=== PATIENT | female | born 1940 | race Caucasian/White ===

== ENCOUNTER 2017-03-06 08:51 | Inpatient (IN) | payer MEDICARE, MEDICAID ==
[~2017-03-06] VITALS: Ht 160 cm; Wt 73.0 kg
[2017-03-06] VITALS (21 sets, daily range): BP systolic 79–124; BP diastolic 42–99
[2017-03-06] MEDS ORDERED: Diltiazem 25mg/5ml IV ONE ×2 (09:15→12:00)
[2017-03-06] MEDS ORDERED: Ipratropium 0.02% Inh Soln 2.5ml UD HHN ONE (09:15)
[2017-03-06] MEDS ORDERED: Albuterol ud Inhalation HHN ONE (09:15)
[2017-03-06 09:22] LABS: BASOPHILS % (AUTO) 2.4 % (0.0-2.0); EOSINOPHILS % (AUTO) 3.4 % (0.0-3.0); LYMPHOCYTES % (AUTO) 50.6 % (20.0-45.0); MEAN CORPUSCULAR HEMOGLOBIN 29.5 PG (27.0-31.0); MEAN CORPUSCULAR HGB CONC 31.1 G/DL (32.0-36.0); MEAN CORPUSCULAR VOLUME 95 FL (80-99); MEAN PLATELET VOLUME 7.3 FL (6.5-10.1); MONOCYTES % (AUTO) 7.7 % (1.0-10.0); NEUTROPHILS % (AUTO) 35.9 % (45.0-75.0); PLATELET COUNT 429 K/UL (150-450); RED BLOOD COUNT 4.65 M/UL (4.20-5.40); WHITE BLOOD COUNT 11.7 K/UL (4.8-10.8)
[2017-03-06 09:31] LABS: INR 1.9 (0.9-1.1); PROTHROMBIN TIME 19.8 SEC (9.30-11.50)
[2017-03-06 09:39] LABS: TROPONIN I < 0.30 ng/mL (<=0.30)
[2017-03-06 09:42] LABS: ALANINE AMINOTRANSFERASE 22 U/L (3-33); ALBUMIN/GLOBULIN RATIO 1.4 (1.0-2.7); ANION GAP 13 (5-15); ASPARTATE AMINO TRANSFERASE 20 U/L (5-40); CALCIUM 9.2 mg/dL (8.6-10.2); CARBON DIOXIDE 28 mEQ/L (20-30); CHLORIDE 99 mEQ/L (98-107); CREATININE 0.8 mg/dL (0.5-0.9); HEMOLYSIS 22; LIPASE 44 U/L (< 60); POTASSIUM 4.3 mEQ/L (3.4-4.9); SODIUM 140 mEQ/L (135-145); TOTAL PROTEIN 6.4 g/dL (6.6-8.7)
[2017-03-06] MEDS ORDERED: DIGOXIN0.125 MG/2 ORAL (09:44)
[2017-03-06] MEDS ORDERED: BACLOFEN10 MG ORAL (09:44)
[2017-03-06] MEDS ORDERED: IPRATROPIU0.2 MG/1 M HHN (09:44)
[2017-03-06] MEDS ORDERED: ADVAIR 250-501 EACH INH (09:44)
[2017-03-06] MEDS ORDERED: ATORVASTATIN CA10 MG ORAL (09:44)
[2017-03-06] MEDS ORDERED: FUROSEMIDE40 MG/5 ML ORAL (09:44)
[2017-03-06] MEDS ORDERED: SORE THROAT LO1 EAC3 MM (09:44)
[2017-03-06] MEDS ORDERED: DILTIAZEM HCL120 MG PO (09:44)
[2017-03-06] MEDS ORDERED: COUMADIN5 MG ORAL (09:44)
[2017-03-06] MEDS ORDERED: VENTOLIN HFA18 GM INH (09:44)
[2017-03-06] MEDS ORDERED: COLACE100 MG ORAL (09:44)
[2017-03-06] MEDS ORDERED: MORPHINE IR15 MG ORAL (09:45)
[2017-03-06] MEDS ORDERED: MILK OF MA400 MG/51 ORAL (09:45)
[2017-03-06] MEDS ORDERED: LEFLUNOMIDE20 MG PO (09:45)
[2017-03-06] MEDS ORDERED: SIMETHICONE80 MG ORAL (09:45)
[2017-03-06] MEDS ORDERED: GLUCAGON EMERGEN1 MG IJ (09:45)
[2017-03-06] MEDS ORDERED: JANUMET 50-5001 EACH ORAL (09:45)
[2017-03-06] MEDS ORDERED: PROTONIX20 MG ORAL (09:45)
[2017-03-06] MEDS ORDERED: NORCO 5-325 TA1 EAC1 ORAL (09:45)
[2017-03-06] MEDS ORDERED: SPIRIVA18 MCG INH (09:45)
[2017-03-06] MEDS ORDERED: GLUCOSE GEL38 GM PO (09:45)
[2017-03-06] MEDS ORDERED: SYMBICORT 80-10.2 G1 IH (09:45)
[2017-03-06] MEDS ORDERED: LORAZEPAM0.5 GM PO (09:45)
[2017-03-06] MEDS ORDERED: ALUMINUM H320 MG/5 M PO (09:45)
[2017-03-06] MEDS ORDERED: GABAPENTIN300 MG ORAL (09:45)
[2017-03-06] MEDS ORDERED: HUMALOG100 UNIT/4 SUBQ (09:45)
[2017-03-06] MEDS ORDERED: XOPENEX HFA15 GM IH (09:49)
[2017-03-06] MEDS ORDERED: ACETAMINOPHEN325 M1 ORAL (09:49)
[2017-03-06 09:53] LABS: CKMB 3.2 ng/mL (< 3.8)
[2017-03-06 10:27] LABS: ABG ALLEN TEST POSITIVE; ABG BASE EXCESS 1.5; ABG PCO2 50.2 mmHg (35.0-45.0)
--- NOTE | 2017-03-06 10:28 | Diagnostic Imaging Report ---
Indication: Dyspnea Comparison: None A single view chest radiograph was obtained. Findings: Interstitial densities, slightly enlarged hilar vessels and cardiac present. The bones are osteopenic. Impression: Suspect mild interstitial edema. correlate clinically
[2017-03-06] MEDS ORDERED: Enalaprilat 2.5mg/2ml Inj IV PRN ×2 (11:00→19:00)
[2017-03-06] MEDS ORDERED: Miralax 17gm pkt ORAL PRN ×2 (11:00→19:00)
[2017-03-06] MEDS ORDERED: DuoNeb 0.5-3(2.5)mg/3ml neb HHN PRN (11:00)
[2017-03-06] MEDS ORDERED: Nitroglycerin Subl 0.4mg tab (Bottle Of 25) SL PRN ×2 (11:00→18:45)
[2017-03-06] MEDS: Diltiazem 25mg/5ml IV PRN ×2 (11:54→14:58)
--- NOTE | 2017-03-06 14:16 | Emergency Room Report ---
History of Present Illness General Chief Complaint: Dyspnea/Respdistress Source: Patient, Medical Record Present Illness HPI Patient is a 76-year-old female who presented after increased difficulty breathing. Patient noted have acute onset of symptoms. Patient prior history of COPD. She was noted markedly hypertensive and was given multiple doses of nitroglycerin by EMS. Patient was noted to have increased shortness of breath. This is worsened with supine position. Patient did have crackles to both lungs. Patient had reportedly not been febrile. Allergies: Coded Allergies: No Known Allergies (Unverified , 03/06/17) Patient History Past Medical History: see triage record Now: No Reviewed Nursing Documentation: PMH: Agreed, PSxH: Agreed Nursing Documentation-PMH Hx Cardiac Problems: Yes Hx Hypertension: Yes Hx COPD: Yes - hypoxia,pneumonia Hx Diabetes: Yes Hx Cancer: No Hx Gastrointestinal Problems: Yes - ge reflux Hx Neurological Problems: Yes - rhumatoid arthrities Review of Systems All Other Systems: negative except mentioned in HPI Physical Exam Vital Signs Date Time Temp Pulse Resp B/P Pulse Ox O2 Delivery O2 Flow Rate FiO2 03/06/17 08:45 145 28 224/109 92 Non-Rebreather 15.0 03/06/17 08:54 97.5 100 Sp02 EP Interpretation: reviewed, normal General Appearance: normal inspection, well appearing, no apparent distress, alert, GCS 15, non-toxic Head: atraumatic ENT: normal ENT inspection, hearing grossly normal, normal voice Neck: normal inspection, full range of motion, supple, no bony tend Respiratory: normal inspection, lungs clear, normal breath sounds, no respiratory distress, no retraction, no wheezing Cardiovascular #1: regular rate, rhythm, no edema Gastrointestinal: normal inspection, normal bowel sounds, non tender, soft, no guarding, no hernia Genitourinary: no CVA tenderness Musculoskeletal: normal inspection, back normal, normal range of motion Neurologic: normal inspection, alert, oriented x3, responsive, line inspector III-XII nml as tested, speech normal Psychiatric: normal inspection, judgement/insight normal, mood/affect normal Skin: normal inspection, normal color, no rash Procedures Critical Care Time Critical Care Time Patient had a critical medical condition which untreated could potentially result in life or limb threatening injury. Total critical care time excluding procedures approximately 45 minutes. Medical Decision Making Diagnostic Impression: Primary Impression: Hypertensive emergency Additional Impressions: Congestive heart failure (CHF) COPD (chronic obstructive pulmonary disease) ER Course Patient presented for shortness of breath. Differential included but was not limited to anemia, pneumonia, pneumothorax, myocardial infarction, pericardial effusion, congestive heart failure, acidosis. Because of complexity of patient' s case laboratory testing and imaging studies were ordered. The patient was noted to have a prior history of COPD. She is noted to have atrial fibrillation with rapid ventricular response with a rate of breath or 50s. Patient was given IV Cardizem for rapid heart rate. The patient had improvement in heart rate. She started on BiPAP Dr. Ewing was contacted for inpatient management due to complexity of medical condition. EKG Diagnostic Results Rhythm: other - afib Rhythm Strip Diag. Results EP Interpretation: yes Rhythm: no PVC's, no ectopy Last Vital Signs Date Time Temp Pulse Resp B/P Pulse Ox O2 Delivery O2 Flow Rate FiO2 03/06/17 13:20 97.4 115 22 101/64 99 Bi-pap 30 03/06/17 08:45 15.0 Status: improved Disposition: ADMITTED INPATIENT Condition: Critical Referrals: NON PHYSICIAN (PCP) Josafat Silva Mar 06, 2017 14:16
[2017-03-06] MEDS ORDERED: Norco 5mg/325mg tab ORAL PRN (15:00)
[2017-03-06] MEDS ORDERED: Morphine IR 15mg tab ORAL PRN (15:00)
--- NOTE | 2017-03-06 15:14 | Cardiology Progress Note ---
Assessment/Plan Assessment/Plan copd chf acute systoilci dm obesity afib hs of dvt recently diuretic c consdire acie in futuer if bp allow dig level copd med limit beta agonits inhaler if possible anticoag cardizem drip for hr control vs po dilt [id number] Objective Last 24 Hour Vital Signs Date Time Temp Pulse Resp B/P Pulse Ox O2 Delivery O2 Flow Rate FiO2 03/06/17 13:20 97.4 115 22 101/64 99 Bi-pap 30 03/06/17 12:56 105 22 94/52 99 Bi-pap 30 03/06/17 12:35 104 24 97/51 99 Bi-pap 30 03/06/17 12:30 106 21 99 Facial 30 03/06/17 12:25 103 22 80/42 99 Bi-pap 30 03/06/17 12:20 104 24 100/60 99 Bi-pap 30 03/06/17 12:07 129 26 101/68 99 Bi-pap 30 03/06/17 12:06 130 111/70 03/06/17 11:48 120 22 97/53 99 Room Air 03/06/17 10:37 128 20 100 Facial 30 03/06/17 10:24 30 03/06/17 10:05 124 20 Bi-pap 100 03/06/17 09:37 124 22 97/48 100 Bi-pap 100 03/06/17 09:35 132 26 100 Bi-pap 100 03/06/17 09:34 123 29 101/48 100 Bi-pap 100 03/06/17 09:27 138 21 79/58 100 Bi-pap 100 03/06/17 09:25 147 26 100 Bi-pap 100 03/06/17 09:25 149 23 83/58 100 Bi-pap 100 03/06/17 09:20 146 124/59 03/06/17 09:03 167 48 100 Facial 100 03/06/17 09:02 167 48 Bi-pap 100 03/06/17 08:55 154 30 Bi-pap 100 03/06/17 08:54 97.5 164 45 99/52 100 Bi-pap 100 03/06/17 08:45 145 28 224/109 92 Non-Rebreather 15.0 Laboratory Tests Test 03/06/17 08:50 03/06/17 10:14 White Blood Count 11.7 K/UL (4.8-10.8) H Red Blood Count 4.65 M/UL (4.20-5.40) Hemoglobin 13.7 G/DL (12.0-16.0) Hematocrit 44.2 % (37.0-47.0) Mean Corpuscular Volume 95 FL (80-99) Mean Corpuscular Hemoglobin 29.5 PG (27.0-31.0) Mean Corpuscular Hemoglobin Concent 31.1 G/DL (32.0-36.0) L Red Cell Distribution Width 14.0 % (11.6-14.8) Platelet Count 429 K/UL (150-450) Mean Platelet Volume 7.3 FL (6.5-10.1) Neutrophils (%) (Auto) 35.9 % (45.0-75.0) L Lymphocytes (%) (Auto) 50.6 % (20.0-45.0) H Monocytes (%) (Auto) 7.7 % (1.0-10.0) Eosinophils (%) (Auto) 3.4 % (0.0-3.0) H Basophils (%) (Auto) 2.4 % (0.0-2.0) H Prothrombin Time 19.8 SEC (9.30-11.50) H Prothromb Time International Ratio 1.9 (0.9-1.1) H Activated Partial Thromboplast Time 33 SEC (23-33) Sodium Level 140 mEQ/L (135-145) Potassium Level 4.3 mEQ/L (3.4-4.9) Chloride Level 99 mEQ/L (98-107) Carbon Dioxide Level 28 mEQ/L (20-30) Anion Gap 13 (5-15) Blood Urea Nitrogen 11 mg/dL (7-23) Creatinine 0.8 mg/dL (0.5-0.9) Estimat Glomerular Filtration Rate mL/min (>60) Glucose Level 375 mg/dL (74-106) H Calcium Level 9.2 mg/dL (8.6-10.2) Total Bilirubin 0.3 mg/dL (0.0-1.2) Aspartate Amino Transf (AST/SGOT) 20 U/L (5-40) Alanine Aminotransferase (ALT/SGPT) 22 U/L (3-33) Alkaline Phosphatase 158 U/L (35-104) H Total Creatine Kinase 90 U/L (26-140) Creatine Kinase MB 3.2 ng/mL (< 3.8) Creatine Kinase MB Relative Index 3.5 Troponin I < 0.30 ng/mL (<=0.30) Pro-B-Type Natriuretic Peptide 1042 pg/mL (0-450) H Total Protein 6.4 g/dL (6.6-8.7) L Albumin 3.8 g/dL (3.5-5.2) Globulin 2.6 g/dL Albumin/Globulin Ratio 1.4 (1.0-2.7) Lipase 44 U/L (< 60) Digoxin Level Pending Arterial Blood pH 7.350 (7.350-7.450) Arterial Blood Partial Pressure CO2 50.2 mmHg (35.0-45.0) H Arterial Blood Partial Pressure O2 513.0 mmHg (75.0-100.0) H Arterial Blood HCO3 27.7 mmol/L (22.0-26.0) H Arterial Blood Oxygen Saturation 99.6 % (92.0-98.0) H Arterial Blood Base Excess 1.5 Anthony Test Positive YOON ROBLEDO Mar 06, 2017 15:14
[2017-03-06] MEDS ORDERED: Simethicone 80mg tab ORAL PRN ×2 (16:30→19:00)
[2017-03-06] MEDS ORDERED: Promethazine/Codeine 5ml UD ORAL PRN ×2 (16:45)
--- NOTE | 2017-03-06 16:47 | History and Physical ---
History of Present Illness General Date patient seen: Mar 06, 2017 Reason for Hospitalization: Dyspnea/Respdistress Present Illness HPI 76-year-old female with hx of COPD, recent intubation at [facility], currently at [facility] for rehab, presented after increased difficulty breathing with acute onset of symptoms. She was noted markedly hypertensive and was given multiple doses of nitroglycerin by EMS. Pt was in respiratory failure in ER and was started on BIPAP. She was tachycardic as well. She was initially admitted to [facility] but then because of rapid afib, i transferred him to ICU for closer monitoring. Allergies: Coded Allergies: No Known Allergies (Unverified , 03/06/17) Medication History Scheduled Albuterol Sulfate (Ventolin Hfa), 1 PUFF INH EVERY 6 HOURS, (Reported) Atorvastatin Calcium* (Lipitor*), 10 MG ORAL BEDTIME, (Reported) Baclofen* (Baclofen*), 10 MG ORAL THREE TIMES A DAY, (Reported) Digoxin* (Digoxin*), 0.125 MG ORAL DAILY, (Reported) Diltiazem Hcl (Diltiazem Hcl), 120 MG PO DAILY, (Reported) Docusate Sodium* (Colace*), 100 MG ORAL TWICE A DAY, (Reported) Fluticasone/Salmeterol (Advair 250-50 Diskus), 1 PUFF INH EVERY 12 HOURS, ( Reported) Furosemide (Furosemide), 40 MG ORAL DAILY, (Reported) Gabapentin* (Gabapentin*), 300 MG ORAL THREE TIMES A DAY, (Reported) Leflunomide (Leflunomide), 20 MG PO DAILY, (Reported) Levalbuterol Tartrate (Xopenex Hfa), 1 INH IH TID, (Reported) Pantoprazole Sodium (Protonix), 20 MG ORAL DAILY, (Reported) Sitagliptin Phos/Metformin Hcl (Janumet 50-500 Mg Tablet), 1 TAB ORAL TWICE A DAY, (Reported) Tiotropium Hoffman* (Spiriva*), 1 PUFF INH DAILY, (Reported) Warfarin Sod* (Coumadin*), 5 MG ORAL QPM, (Reported) Scheduled PRN Acetaminophen* (Acetaminophen 325MG Tablet*), 650 MG ORAL Q4H PRN for Pain Scale (3-5), (Reported) Aluminum Hydroxide (Aluminum Hydroxide), 320 MG PO TID PRN for Abdominal cramps, (Reported) Benzocaine/Menthol (Sore Throat Lozenge), 1 EACH MM EVERY 6 HOURS PRN for Taper, (Reported) Dextrose (Glucose Gel), 38 GM PO for Hypoglycemia, (Reported) Hydrocodone Bit/Acetaminophen 5-325* (Walton 5-325 Tablet*), 1 TAB ORAL Q4H PRN for For Pain, (Reported) Ipratropium Hoffman 0.5MG/2.5ML (Ipratropium Hoffman 0.5MG/2.5ML), 0.5 MG HHN Q6H PRN for Shortness of Breath, (Reported) Lorazepam (Lorazepam), 0.5 MG PO EVERY 4 HOURS PRN for Agitation, (Reported) Magnesium Hydroxide* (Milk Of Magnesia*), 30 ML ORAL TID PRN for Abdominal cramps, (Reported) Morphine HCl (Morphine Sulfate ER), 15 MG ORAL EVERY 12 HOURS PRN for For Pain, (Reported) Simethicone* (Simethicone*), 80 MG ORAL Q8H PRN for GAS PAIN, (Reported) Miscellaneous Medications Budesonide/Formoterol Fumarate (Symbicort 80-4.5 Mcg Inhaler), 1 PUFF IH, ( Reported) Glucagon,Human Recombinant (Glucagon Emergency Kit), 1 MG IJ, (Reported) Insulin Lispro (Humalog), 0 SUBQ, (Reported) Patient History Healthcare decision maker Resuscitation status Full Code Advanced Directive on File No Past Medical/Surgical History Past Medical/Surgical History: (1) Diabetes mellitus (2) Atrial fibrillation (3) COPD (chronic obstructive pulmonary disease) (4) Cardiomyopathy Review of Systems All Other Systems: negative except mentioned in HPI Physical Exam General Appearance: WD/WN Lines, tubes and drains: peripheral HEENT: normocephalic Neck: non-tender, normal alignment Respiratory/Chest: chest wall non-tender, lungs clear Breasts: no masses Cardiovascular/Chest: normal peripheral pulses, normal rate Abdomen: normal bowel sounds, non tender Genitourinary/Rectal: normal genital exam Extremities: normal range of motion Last 24 Hour Vital Signs Date Time Temp Pulse Resp B/P Pulse Ox O2 Delivery O2 Flow Rate FiO2 03/06/17 16:13 97.6 106 21 97/51 99 Bi-pap 30 03/06/17 14:58 140 126/62 03/06/17 14:45 134 25 99 Facial 30 03/06/17 13:20 97.4 115 22 101/64 99 Bi-pap 30 03/06/17 12:56 105 22 94/52 99 Bi-pap 30 03/06/17 12:35 104 24 97/51 99 Bi-pap 30 03/06/17 12:30 106 21 99 Facial 30 03/06/17 12:25 103 22 80/42 99 Bi-pap 30 03/06/17 12:20 104 24 100/60 99 Bi-pap 30 03/06/17 12:07 129 26 101/68 99 Bi-pap 30 03/06/17 12:06 130 111/70 03/06/17 11:48 120 22 97/53 99 Room Air 03/06/17 10:37 128 20 100 Facial 30 03/06/17 10:24 30 03/06/17 10:05 124 20 Bi-pap 100 03/06/17 09:37 124 22 97/48 100 Bi-pap 100 03/06/17 09:35 132 26 100 Bi-pap 100 03/06/17 09:34 123 29 101/48 100 Bi-pap 100 03/06/17 09:27 138 21 79/58 100 Bi-pap 100 03/06/17 09:25 147 26 100 Bi-pap 100 03/06/17 09:25 149 23 83/58 100 Bi-pap 100 03/06/17 09:20 146 124/59 03/06/17 09:03 167 48 100 Facial 100 03/06/17 09:02 167 48 Bi-pap 100 03/06/17 08:55 154 30 Bi-pap 100 03/06/17 08:54 97.5 164 45 99/52 100 Bi-pap 100 03/06/17 08:45 145 28 224/109 92 Non-Rebreather 15.0 Laboratory Tests Test 03/06/17 08:50 03/06/17 10:14 White Blood Count 11.7 K/UL (4.8-10.8) H Red Blood Count 4.65 M/UL (4.20-5.40) Hemoglobin 13.7 G/DL (12.0-16.0) Hematocrit 44.2 % (37.0-47.0) Mean Corpuscular Volume 95 FL (80-99) Mean Corpuscular Hemoglobin 29.5 PG (27.0-31.0) Mean Corpuscular Hemoglobin Concent 31.1 G/DL (32.0-36.0) L Red Cell Distribution Width 14.0 % (11.6-14.8) Platelet Count 429 K/UL (150-450) Mean Platelet Volume 7.3 FL (6.5-10.1) Neutrophils (%) (Auto) 35.9 % (45.0-75.0) L Lymphocytes (%) (Auto) 50.6 % (20.0-45.0) H Monocytes (%) (Auto) 7.7 % (1.0-10.0) Eosinophils (%) (Auto) 3.4 % (0.0-3.0) H Basophils (%) (Auto) 2.4 % (0.0-2.0) H Prothrombin Time 19.8 SEC (9.30-11.50) H Prothromb Time International Ratio 1.9 (0.9-1.1) H Activated Partial Thromboplast Time 33 SEC (23-33) Sodium Level 140 mEQ/L (135-145) Potassium Level 4.3 mEQ/L (3.4-4.9) Chloride Level 99 mEQ/L (98-107) Carbon Dioxide Level 28 mEQ/L (20-30) Anion Gap 13 (5-15) Blood Urea Nitrogen 11 mg/dL (7-23) Creatinine 0.8 mg/dL (0.5-0.9) Estimat Glomerular Filtration Rate mL/min (>60) Glucose Level 375 mg/dL (74-106) H Calcium Level 9.2 mg/dL (8.6-10.2) Total Bilirubin 0.3 mg/dL (0.0-1.2) Aspartate Amino Transf (AST/SGOT) 20 U/L (5-40) Alanine Aminotransferase (ALT/SGPT) 22 U/L (3-33) Alkaline Phosphatase 158 U/L (35-104) H Total Creatine Kinase 90 U/L (26-140) Creatine Kinase MB 3.2 ng/mL (< 3.8) Creatine Kinase MB Relative Index 3.5 Troponin I < 0.30 ng/mL (<=0.30) Pro-B-Type Natriuretic Peptide 1042 pg/mL (0-450) H Total Protein 6.4 g/dL (6.6-8.7) L Albumin 3.8 g/dL (3.5-5.2) Globulin 2.6 g/dL Albumin/Globulin Ratio 1.4 (1.0-2.7) Lipase 44 U/L (< 60) Digoxin Level Pending Arterial Blood pH 7.350 (7.350-7.450) Arterial Blood Partial Pressure CO2 50.2 mmHg (35.0-45.0) H Arterial Blood Partial Pressure O2 513.0 mmHg (75.0-100.0) H Arterial Blood HCO3 27.7 mmol/L (22.0-26.0) H Arterial Blood Oxygen Saturation 99.6 % (92.0-98.0) H Arterial Blood Base Excess 1.5 Anthony Test Positive Height (Feet): 5 Height (Inches): 3.00 Weight (Pounds): 130 Medications Current Medications Medications (Trade) Dose Ordered Sig/Mo Route PRN Reason Start Time Stop Time Status Last Admin Dose Admin Acetaminophen (Tylenol) 650 mg Q4H PRN ORAL FEVER 03/06/17 11:00 04/05/17 10:59 Acetaminophen/ Hydrocodone Bitart (Walton 5/325) 1 tab Q4H PRN ORAL For Pain 4-10 03/06/17 15:00 03/13/17 14:59 Albuterol/ Ipratropium (DuoNeb 0.5-3(2.5)mg/3ml) 3 ml Q4H PRN HHN Shortness of Breath 03/06/17 11:00 03/11/17 10:59 Atorvastatin Calcium (Lipitor) 10 mg BEDTIME ORAL 03/06/17 21:00 04/05/17 20:59 Baclofen (Lioresal) 10 mg THREE TIMES A DAY ORAL 03/06/17 18:00 04/05/17 17:59 Dextrose (Dextrose 50%) STAT PRN IV Hypoglycemia 03/06/17 16:00 04/05/17 15:59 Digoxin (Lanoxin) 0.125 mg DAILY ORAL 03/07/17 09:00 04/06/17 08:59 Diltiazem HCl (Cardizem) 10 mg Q1H PRN IV heart rate more than 120, 03/06/17 11:00 04/05/17 10:59 03/06/17 14:58 Diltiazem HCl/ Dextrose (Cardizem/D5W) 125 ml @ 5 mls/hr Q24H IV 03/06/17 16:00 03/07/17 15:59 UNV Enalaprilat (Vasotec) 2.5 mg Q6H PRN IV sbp more than 160 03/06/17 11:00 04/05/17 10:59 Furosemide 20 mg 20 mg DAILY IV 03/06/17 16:00 04/05/17 15:59 Gabapentin (Neurontin) 300 mg THREE TIMES A DAY ORAL 03/06/17 15:00 04/05/17 14:59 03/06/17 16:17 Insulin Aspart (NovoLOG) BEFORE MEALS AND HS SUBQ 03/06/17 17:00 04/05/17 16:59 Methylprednisolone Sodium Succinate 500 mg/Sodium Chloride 110 ml @ 110 mls/hr EVERY 6 HOURS IVPB 03/06/17 18:00 04/05/17 17:59 UNV Nitroglycerin (Ntg) 0.4 mg Q5M PRN SL Prn Chest Pain 03/06/17 11:00 04/05/17 10:59 Ondansetron HCl (Zofran) 4 mg Q6H PRN IVP Nausea & Vomiting 03/06/17 11:00 04/05/17 10:59 Pantoprazole (Protonix) 40 mg DAILY ORAL 03/07/17 09:00 04/06/17 08:59 Piperacillin Sod/ Tazobactam Sod/ Dextrose (Zosyn/D5W) 110 ml @ 27.5 mls/hr EVERY 8 HOURS IVPB 03/06/17 22:00 03/11/17 21:59 UNV Polyethylene Glycol (Miralax) 17 gm DAILYPRN PRN ORAL Constipation 03/06/17 11:00 04/05/17 10:59 Promethazine HCl/ Codeine (Phenergan with Codeine) 5 ml Q4H PRN ORAL For Cough 03/06/17 16:45 04/05/17 16:44 UNV Promethazine HCl/ Codeine 5 ml 5 ml Q4H PRN ORAL For Cough 03/06/17 16:45 04/05/17 16:44 Simethicone (Mylicon) 80 mg Q8H PRN ORAL GAS PAIN 03/06/17 16:30 04/05/17 16:29 Temazepam (Restoril) 15 mg HSPRN PRN ORAL Insomnia 03/06/17 11:00 03/13/17 10:59 Warfarin Sodium (Coumadin per pharmacy) 1 ea DAILY PRN MISC PER RX PROTOCOL 03/06/17 11:45 04/05/17 11:44 Warfarin Sodium (Coumadin) 5 mg COUMADIN ONCE ORAL 03/06/17 17:00 03/06/17 17:01 Assessment/Plan Problem List: (1) Acute respiratory failure ICD Codes: J96.00 - Acute respiratory failure, unspecified whether with hypoxia or hypercapnia SNOMED: 22089409 (2) Atrial fibrillation ICD Codes: I48.91 - Unspecified atrial fibrillation SNOMED: 46645812 (3) Diabetes mellitus ICD Codes: E11.9 - Type 2 diabetes mellitus without complications SNOMED: 54080086 (4) Cardiomyopathy ICD Codes: I42.9 - Cardiomyopathy, unspecified SNOMED: 14355543 (5) COPD (chronic obstructive pulmonary disease) ICD Codes: J44.9 - Chronic obstructive pulmonary disease, unspecified SNOMED: 11031579 Respiratory: monitor respiratory rate, adjust FIO2, CXR Cardiac: continue to monitor HR/BP, other - cardizem drip Renal: increase IV fluid Infectious Disease: check cultures, continue antibiotics, add antibiotics Gastrointestinal: continue feedings/current rate Endocrine: monitor blood sugar, check HgA1C, continue sliding scale insulin Hematologic: monitor H/H, transfuse if hgb<8.5 Neurologic: PRN Ativan, PRN Morphine, keep patient comfortable Affect: PRN ativan Prophylaxis: Protonix, Heparin Disposition: keep in ICU Notes Reviewed: cardio Discussed with: nurses, consultants, machine adjuster leader case trim THANIA ACKERMAN Mar 06, 2017 16:47
[2017-03-06] MEDS ORDERED: Warfarin Sodium 5mg ORAL ONE (17:00)
[2017-03-06] MEDS ORDERED: Warfarin Sodium 4mg ORAL ONE (17:00)
[2017-03-06] MEDS ORDERED: NovoLOG Insulin Flexpen SUBQ SCH (17:00)
[2017-03-06] MEDS ORDERED: Piperacillin/Tazobactam 3.375 GM in D5W 110 ML IVPB SCH (18:00)
[2017-03-06] MEDS ORDERED: methylPREDNISolone Sod Succ 500 MG in NS 110 ML IVPB SCH (18:00)
[2017-03-06] MEDS ORDERED: Heparin 5000 units/ml inj SUBQ SCH (21:00)
[2017-03-06] MEDS: NovoLOG Insulin Flexpen SUBQ SCH (21:31)
[2017-03-07] VITALS (48 sets, daily range): BP systolic 92–166; BP diastolic 42–106
--- NOTE | 2017-03-07 00:15 | Consultation ---
DATE OF CONSULTATION: 03/06/2017 CONSULTING PHYSICIAN: Rudy Kumar M.D. REFERRING PHYSICIAN: Erma Ewing M.D. REASON FOR REFERRAL: Atrial fibrillation with rapid ventricular response, congestive heart failure, and COPD exacerbation. HISTORY OF PRESENT ILLNESS: This is a 76-year-old female, who is a resident at [facility]. The patient has history of COPD with multiple prior exacerbation. About three or four weeks ago, she was hospitalized at [facility] and [facility] and she had exacerbation of shortness of breath as of today. She really has not had any pain, although, she has some tightening sensation in the epigastric area. She has coughing. She has wheezing. She has one pillow usage and it brings the head of the bed up a little bit. She has dyspnea on exertion and dyspnea at rest. She has no dizziness or lightheadedness. She cannot really feel any palpitations. She has been noted to have rapid heart rate and atrial fibrillation; therefore, this consultation was requested. PAST MEDICAL HISTORY: Positive for history of diastolic heart failure, diabetes mellitus, hypertension, hyperlipidemia, COPD, anemia, history of hematoma, morbid obesity, diabetes mellitus, respiratory failure, obesity, hypoventilation syndrome versus overlap syndrome. Her heart rates have been controlled with a combination of diltiazem as well as metoprolol. She has been off and on BiPAP. REVIEW OF SYSTEMS: Gastrointestinal: Negative recently. Genitourinary: She has some burning on urination. Pulmonary: Positive for cough and wheezing. Constitutional: No fevers, chills, or night sweats. Neurologic: Negative. PHYSICAL EXAMINATION: GENERAL: Shows to be elderly female in moderate respiratory distress. The nursing staff applied BiPAP mask to her. NECK: Supple. LUNGS: There is decreased air entry bilaterally. There is some crackles on the left base. Decreased breath sounds on the right base. CARDIAC: Irregularly irregular. Tachycardic. No heaves or thrills noted. ABDOMEN: Soft and obese. Positive bowel sounds. EXTREMITIES: A 1+ edema of the lower extremity. NEUROLOGIC: She is awake, alert, and responsive. LABORATORY AND DIAGNOSTIC DATA: Her laboratory values, white count 11.7, hemoglobin 13.7, and platelet count of 429,000. A pH of 7.35, pCO2 50, pO2 , and bicarbonate of 27. Sodium 140, potassium 4.3, chloride 99, bicarbonate 28, BUN 11, creatinine 0.8, and glucose of 275. Alkaline phosphatase 458. First set of cardiac enzymes negative less than 0.3. ProBNP only 1043. Chest x-ray performed in the emergency room shows suspected mild interstitial edema. Electrocardiogram shows atrial fibrillation with rapid ventricular response in the 170s at the time of emergency room presentation. Really no significant ST-T wave abnormalities. An echocardiogram has been performed that shows global hypokinesis basal to mid apical septal akinesis, ejection fraction 30% to 35%, moderate right enlargement, focal aortic cusp sclerosis, and pulmonary pressure in the 40s. ASSESSMENT AND PLAN: 1. Chronic obstructive pulmonary disease exacerbation. 2. Systolic congestive heart failure. 3. Atrial fibrillation, permanent. 4. Tachycardia. 5. Diabetes mellitus. 6. Obesity. Dr. Ewing, this patient was seen in cardiac consultation. The patient's heart rate was quite rapid, although not rapid as it was earlier when she presented to the emergency room with heart rate in the 170s. Nevertheless her heart rate stays in the 120s to 130s. She has responded to IV diltiazem that was administered in the emergency room that will be resumed. As far as bolus, she may require a drip to control her heart rate. Anticoagulation with the use of Coumadin should be resumed for stroke prevention if possible to limit the use of beta-agonist inhalers and diuretics should be provided. She had previously been on some beta-blockers as well, although at the present time with the tightness that she has in her breathing I doubt that she will able to tolerate any beta-blockers. Heart rate control will be attempted with the combination of diltiazem alone and further recommendations as become necessary. She should be back on Coumadin that she was taking for stroke prevention. She has been on digoxin previously. I will administer after level is checked. Rudy Kumar M.D. DR: Julio JOB#: [id number] CC:
[2017-03-07] MEDS: methylPREDNISolone Sod Succ 500 MG in NS 110 ML IVPB SCH ×5 (00:16→23:40)
[2017-03-07] MEDS: Piperacillin/Tazobactam 3.375 GM in D5W 110 ML IVPB SCH ×3 (01:38→17:27)
[2017-03-07] MEDS: Norco 5mg/325mg tab ORAL PRN ×3 (04:20→13:33)
[2017-03-07 04:22] LABS: BASOPHILS % (AUTO) 1.1 % (0.0-2.0); EOSINOPHILS % (AUTO) 0.1 % (0.0-3.0); LYMPHOCYTES % (AUTO) 30.2 % (20.0-45.0); MEAN CORPUSCULAR HEMOGLOBIN 29.7 PG (27.0-31.0); MEAN CORPUSCULAR HGB CONC 31.3 G/DL (32.0-36.0); MEAN CORPUSCULAR VOLUME 95 FL (80-99); MEAN PLATELET VOLUME 7.3 FL (6.5-10.1); MONOCYTES % (AUTO) 1.5 % (1.0-10.0); NEUTROPHILS % (AUTO) 67.1 % (45.0-75.0); PLATELET COUNT 367 K/UL (150-450); RED BLOOD COUNT 5.16 M/UL (4.20-5.40); RED CELL DISTRIBUTION WIDTH 14.4 % (11.6-14.8); WHITE BLOOD COUNT 9.8 K/UL (4.8-10.8)
[2017-03-07] MEDS: DuoNeb 0.5-3(2.5)mg/3ml neb HHN PRN ×6 (04:22→23:15)
[2017-03-07 04:32] LABS: PROTHROMBIN TIME 21.1 SEC (9.30-11.50)
[2017-03-07 04:38] LABS: TROPONIN I < 0.30 ng/mL (<=0.30)
[2017-03-07 04:39] LABS: CHOLESTEROL/HDL RATIO 3.5 (3.3-4.4)
[2017-03-07 04:53] LABS: THYROID STIMULATING HORMONE 0.139 uIU/mL (0.300-4.500)
[2017-03-07] MEDS: NovoLOG Insulin Flexpen SUBQ SCH ×4 (05:59→23:42)
[2017-03-07] MEDS ORDERED: Digoxin 0.125mg tab ORAL SCH (09:00)
[2017-03-07] MEDS: Digoxin 0.125mg tab ORAL SCH (09:21)
--- NOTE | 2017-03-07 09:54 | Pulmonolgy Critical Care Note ---
Critical Care - Asmt/Plan Problems: (1) Acute respiratory failure (2) Healthcare-associated pneumonia (3) COPD (chronic obstructive pulmonary disease) (4) Congestive heart failure (CHF) (5) Hypertensive emergency (6) Atrial fibrillation (7) Cardiomyopathy (8) Diabetes mellitus Respiratory: monitor respiratory rate, adjust FIO2, CXR Cardiac: continue to monitor HR/BP, other - continue cardizem drip Renal: F/U I&O, keep IV fluid, check electrolytes Infectious Disease: check cultures, continue antibiotics Gastrointestinal: continue feedings/current rate Endocrine: monitor blood sugar, check TSH Hematologic: monitor H/H Neurologic: PRN Ativan Affect: PRN ativan Prophylaxis: Protonix Disposition: keep in ICU Notes Reviewed: cardio, renal Discussed with: nurses, consultants, correctional counselor/case managercapture manager - Objective Last 24 Hour Vital Signs Date Time Temp Pulse Resp B/P Pulse Ox O2 Delivery O2 Flow Rate FiO2 03/07/17 09:30 112 19 107/63 99 Nasal Cannula 3.0 03/07/17 09:21 120 03/07/17 09:00 114 19 120/90 99 Bi-pap 30 03/07/17 08:45 89 22 100 Nasal Cannula 3.0 32 03/07/17 08:30 91 19 114/72 99 Bi-pap 30 03/07/17 08:00 86 19 125/94 99 Bi-pap 30 03/07/17 08:00 30 03/07/17 08:00 80 03/07/17 07:30 98.1 91 20 131/70 99 Bi-pap 30 03/07/17 07:15 87 24 99 Facial 30 03/07/17 07:00 84 20 125/74 99 Bi-pap 30 03/07/17 06:30 83 20 123/74 99 Bi-pap 30 03/07/17 06:00 92 20 118/70 99 Bi-pap 30 03/07/17 05:30 95 20 117/74 99 Bi-pap 30 03/07/17 05:11 99 22 100 Facial 30 03/07/17 05:00 98 20 118/84 98 Bi-pap 30 03/07/17 04:30 116 22 128/84 99 Bi-pap 30 03/07/17 04:28 114 24 100 Bi-pap 30 03/07/17 04:22 122 28 97 Bi-pap 30 03/07/17 04:00 98.2 143 32 166/91 98 Bi-pap 30 03/07/17 04:00 30 03/07/17 04:00 143 03/07/17 03:30 97 23 110/87 99 Bi-pap 30 03/07/17 03:16 96 23 100 Facial 30 03/07/17 03:00 82 12 121/70 99 Bi-pap 30 03/07/17 02:30 84 12 121/69 99 Bi-pap 30 03/07/17 02:00 84 13 112/65 98 Bi-pap 30 03/07/17 01:30 83 13 108/68 99 Bi-pap 30 03/07/17 01:17 83 21 100 Facial 30 03/07/17 01:00 82 11 110/78 99 Bi-pap 30 03/07/17 00:30 83 13 119/70 100 Bi-pap 30 03/07/17 00:03 30 03/07/17 00:03 97 03/07/17 00:00 97.5 88 20 117/78 100 Bi-pap 30 03/06/17 23:30 97 17 120/82 99 Bi-pap 30 03/06/17 23:07 94 24 100 Facial 30 03/06/17 23:00 91 15 111/79 99 Bi-pap 30 03/06/17 22:30 91 12 98/73 99 Bi-pap 30 03/06/17 22:00 97 13 101/65 100 Bi-pap 30 03/06/17 21:30 103 16 111/68 100 Bi-pap 30 03/06/17 21:21 116 34 98 Facial 30 03/06/17 21:00 103 16 124/76 100 Bi-pap 30 03/06/17 20:38 108 109/87 03/06/17 20:30 111 21 109/87 99 Bi-pap 30 03/06/17 20:00 114 03/06/17 20:00 114 25 123/99 100 Bi-pap 30 03/06/17 20:00 30 03/06/17 19:30 97.6 121 32 117/94 99 Bi-pap 30 03/06/17 19:19 132 41 98 Facial 30 03/06/17 16:55 128 36 98 Facial 30 03/06/17 16:52 98 03/06/17 16:13 97.6 106 21 97/51 99 Bi-pap 30 03/06/17 16:00 30 03/06/17 14:58 140 126/62 03/06/17 14:45 134 25 99 Facial 30 03/06/17 13:20 97.4 115 22 101/64 99 Bi-pap 30 03/06/17 12:56 105 22 94/52 99 Bi-pap 30 03/06/17 12:35 104 24 97/51 99 Bi-pap 30 03/06/17 12:30 106 21 99 Facial 30 03/06/17 12:25 103 22 80/42 99 Bi-pap 30 03/06/17 12:20 104 24 100/60 99 Bi-pap 30 03/06/17 12:07 129 26 101/68 99 Bi-pap 30 03/06/17 12:06 130 111/70 03/06/17 11:48 120 22 97/53 99 Room Air 03/06/17 10:37 128 20 100 Facial 30 03/06/17 10:24 30 03/06/17 10:05 124 20 Bi-pap 100 Status: awake Condition: critical HEENT: atraumatic, normocephalic Neck: full ROM Lungs: chest wall tender Heart: HR/BP stable, regular Abdomen: soft, non-tender, feeding tube Extremities: no C/C/E, edema Decubiti: location, stage Accucheck: 309 Critical Care - Subjective ROS Limited/Unobtainable: No ICU Day: 2 Interval Events: on and off bipap EKG Rhythm: Sinus Rhythm FI02: 30 Sputum Amount: None Drips: cardizem drip I&O: Intake and Output 03/06/17 03/07/17 19:00 07:00 Intake Total 100 ml 1082.5 ml Output Total 285 ml 800 ml Balance -185 ml 282.5 ml Intake Oral 100 ml 720 ml IV Total 362.5 ml Output Urine Total 285 ml 800 ml # Voids 1 # Bowel Movements 2 1 CXR: no change Labs: Laboratory Tests Test 03/06/17 10:14 03/07/17 04:00 Arterial Blood pH 7.350 (7.350-7.450) Arterial Blood Partial Pressure CO2 50.2 mmHg (35.0-45.0) H Arterial Blood Partial Pressure O2 513.0 mmHg (75.0-100.0) H Arterial Blood HCO3 27.7 mmol/L (22.0-26.0) H Arterial Blood Oxygen Saturation 99.6 % (92.0-98.0) H Arterial Blood Base Excess 1.5 Anthony Test Positive White Blood Count 9.8 K/UL (4.8-10.8) Red Blood Count 5.16 M/UL (4.20-5.40) Hemoglobin 15.3 G/DL (12.0-16.0) Hematocrit 48.9 % (37.0-47.0) H Mean Corpuscular Volume 95 FL (80-99) Mean Corpuscular Hemoglobin 29.7 PG (27.0-31.0) Mean Corpuscular Hemoglobin Concent 31.3 G/DL (32.0-36.0) L Red Cell Distribution Width 14.4 % (11.6-14.8) Platelet Count 367 K/UL (150-450) Mean Platelet Volume 7.3 FL (6.5-10.1) Neutrophils (%) (Auto) 67.1 % (45.0-75.0) Lymphocytes (%) (Auto) 30.2 % (20.0-45.0) Monocytes (%) (Auto) 1.5 % (1.0-10.0) Eosinophils (%) (Auto) 0.1 % (0.0-3.0) Basophils (%) (Auto) 1.1 % (0.0-2.0) Prothrombin Time 21.1 SEC (9.30-11.50) H Prothromb Time International Ratio 2.0 (0.9-1.1) H Activated Partial Thromboplast Time 34 SEC (23-33) H Troponin I < 0.30 ng/mL (<=0.30) C-Reactive Protein, Quantitative 1.0 mg/dL (< 0.5) H Triglycerides Level 183 mg/dL (< 150) H Cholesterol Level 176 mg/dL (< 200) LDL Cholesterol 88 mg/dL (60-99) HDL Cholesterol 51 mg/dL (> 60) Cholesterol/HDL Ratio 3.5 (3.3-4.4) Thyroid Stimulating Hormone (TSH) 0.139 uIU/mL (0.300-4.500) Digoxin Level Pending THANIA ACKERMAN Mar 07, 2017 09:54
[2017-03-07] MEDS: Promethazine/Codeine 5ml UD ORAL PRN ×2 (10:18→15:14)
[2017-03-07] MEDS ORDERED: NovoLOG Insulin Flexpen SUBQ SCH (16:30)
[2017-03-07] MEDS ORDERED: Tubing IV Secondary IV ONE (17:00)
[2017-03-07] MEDS ORDERED: Warfarin Sodium 5mg ORAL ONE (17:00)
[2017-03-07] MEDS ORDERED: NS 275ml ONE (17:00)
--- NOTE | 2017-03-07 22:29 | Cardiology Progress Note ---
Assessment/Plan Assessment/Plan a fib today rate is much better on IV diltiazem and digoxin anticoagulated with coumadin, in therapeutic range hopefully , will be weanable from Iv diltiazem to oral when repiratory status more stable discussed in [place] wiht her son Subjective Subjective the patient feels much better, he dyspnea improved since yesterday son at the bedside Objective Last 24 Hour Vital Signs Date Time Temp Pulse Resp B/P Pulse Ox O2 Delivery O2 Flow Rate FiO2 03/07/17 20:02 103 30 100 Nasal Cannula 3.0 32 03/07/17 19:55 108 23 100 Nasal Cannula 3.0 32 03/07/17 19:30 96 106/73 03/07/17 19:00 81 18 141/54 99 Nasal Cannula 3.0 03/07/17 18:30 97 18 115/55 99 Nasal Cannula 3.0 03/07/17 18:00 106 20 105/52 99 Nasal Cannula 3.0 03/07/17 17:30 113 18 122/75 99 Nasal Cannula 3.0 03/07/17 17:00 101 18 133/68 98 Nasal Cannula 3.0 03/07/17 16:50 103 24 100 Nasal Cannula 3.0 32 03/07/17 16:45 99 22 100 Nasal Cannula 3.0 32 03/07/17 16:30 97 19 111/72 98 Nasal Cannula 3.0 03/07/17 16:00 98.3 92 20 106/62 99 Nasal Cannula 3.0 03/07/17 16:00 102 03/07/17 15:30 106 19 120/77 98 Nasal Cannula 3.0 03/07/17 15:00 97 19 114/57 98 Nasal Cannula 3.0 03/07/17 14:30 105 19 109/52 98 Nasal Cannula 3.0 03/07/17 14:00 118 20 130/84 98 Nasal Cannula 3.0 03/07/17 13:30 129 20 151/84 100 Nasal Cannula 3.0 03/07/17 13:15 108 22 100 Nasal Cannula 3.0 32 03/07/17 13:00 103 19 146/91 100 Nasal Cannula 3.0 03/07/17 12:30 98 19 131/76 100 Nasal Cannula 3.0 03/07/17 12:00 98.4 95 20 116/63 99 Nasal Cannula 3.0 03/07/17 12:00 98 8/12/17 11:30 81 20 120/68 99 Nasal Cannula 3.0 03/07/17 11:00 94 20 100/68 99 Nasal Cannula 3.0 03/07/17 10:30 96 20 104/49 98 Nasal Cannula 3.0 03/07/17 10:00 93 19 103/50 99 Nasal Cannula 3.0 03/07/17 09:30 112 19 107/63 99 Nasal Cannula 3.0 03/07/17 09:21 120 03/07/17 09:00 114 19 120/90 99 Bi-pap 30 03/07/17 08:50 98 24 99 Nasal Cannula 3.0 32 03/07/17 08:45 89 22 100 Nasal Cannula 3.0 32 03/07/17 08:30 91 19 114/72 99 Bi-pap 30 03/07/17 08:00 86 19 125/94 99 Bi-pap 30 03/07/17 08:00 30 03/07/17 08:00 80 03/07/17 07:30 98.1 91 20 131/70 99 Bi-pap 30 03/07/17 07:15 87 24 99 Facial 30 03/07/17 07:00 84 20 125/74 99 Bi-pap 30 03/07/17 06:30 83 20 123/74 99 Bi-pap 30 03/07/17 06:00 92 20 118/70 99 Bi-pap 30 03/07/17 05:30 95 20 117/74 99 Bi-pap 30 03/07/17 05:11 99 22 100 Facial 30 03/07/17 05:00 98 20 118/84 98 Bi-pap 30 03/07/17 04:30 116 22 128/84 99 Bi-pap 30 03/07/17 04:28 114 24 100 Bi-pap 30 03/07/17 04:22 122 28 97 Bi-pap 30 03/07/17 04:00 98.2 143 32 166/91 98 Bi-pap 30 03/07/17 04:00 30 03/07/17 04:00 143 03/07/17 03:30 97 23 110/87 99 Bi-pap 30 03/07/17 03:16 96 23 100 Facial 30 03/07/17 03:00 82 12 121/70 99 Bi-pap 30 03/07/17 02:30 84 12 121/69 99 Bi-pap 30 03/07/17 02:00 84 13 112/65 98 Bi-pap 30 03/07/17 01:30 83 13 108/68 99 Bi-pap 30 03/07/17 01:17 83 21 100 Facial 30 03/07/17 01:00 82 11 110/78 99 Bi-pap 30 03/07/17 00:30 83 13 119/70 100 Bi-pap 30 03/07/17 00:03 30 03/07/17 00:03 97 03/07/17 00:00 97.5 88 20 117/78 100 Bi-pap 30 03/06/17 23:30 97 17 120/82 99 Bi-pap 30 03/06/17 23:07 94 24 100 Facial 30 03/06/17 23:00 91 15 111/79 99 Bi-pap 30 03/06/17 22:30 91 12 98/73 99 Bi-pap 30 General Appearance: no apparent distress EENT: PERRL/EOMI Neck: JVD - 8 cm Rhythm: Afib Cardiovascular: tachycardia Respiratory/Chest: expiratory wheezing Abdomen: soft Extremities: non-tender Intake and Output 03/06/17 03/07/17 18:59 06:59 Intake Total 100 ml 967.5 ml Output Total 285 ml 800 ml Balance -185 ml 167.5 ml Intake Oral 100 ml 720 ml IV Total 247.5 ml Output Urine Total 285 ml 800 ml # Voids 1 # Bowel Movements 2 1 Laboratory Tests Test 03/07/17 04:00 White Blood Count 9.8 K/UL (4.8-10.8) Red Blood Count 5.16 M/UL (4.20-5.40) Hemoglobin 15.3 G/DL (12.0-16.0) Hematocrit 48.9 % (37.0-47.0) H Mean Corpuscular Volume 95 FL (80-99) Mean Corpuscular Hemoglobin 29.7 PG (27.0-31.0) Mean Corpuscular Hemoglobin Concent 31.3 G/DL (32.0-36.0) L Red Cell Distribution Width 14.4 % (11.6-14.8) Platelet Count 367 K/UL (150-450) Mean Platelet Volume 7.3 FL (6.5-10.1) Neutrophils (%) (Auto) 67.1 % (45.0-75.0) Lymphocytes (%) (Auto) 30.2 % (20.0-45.0) Monocytes (%) (Auto) 1.5 % (1.0-10.0) Eosinophils (%) (Auto) 0.1 % (0.0-3.0) Basophils (%) (Auto) 1.1 % (0.0-2.0) Prothrombin Time 21.1 SEC (9.30-11.50) H Prothromb Time International Ratio 2.0 (0.9-1.1) H Activated Partial Thromboplast Time 34 SEC (23-33) H Troponin I < 0.30 ng/mL (<=0.30) C-Reactive Protein, Quantitative 1.0 mg/dL (< 0.5) H Triglycerides Level 183 mg/dL (< 150) H Cholesterol Level 176 mg/dL (< 200) LDL Cholesterol 88 mg/dL (60-99) HDL Cholesterol 51 mg/dL (> 60) Cholesterol/HDL Ratio 3.5 (3.3-4.4) Thyroid Stimulating Hormone (TSH) 0.139 uIU/mL (0.300-4.500) Digoxin Level 0.6 ng/mL (0.5-2.0) GREGORY ANDRADE Mar 07, 2017 22:29
[2017-03-08] VITALS (48 sets, daily range): BP systolic 90–181; BP diastolic 37–105
[2017-03-08] MEDS: Piperacillin/Tazobactam 3.375 GM in D5W 110 ML IVPB SCH ×3 (01:48→18:00)
[2017-03-08 03:54] LABS: MEAN CORPUSCULAR HEMOGLOBIN 30.7 PG (27.0-31.0); MEAN CORPUSCULAR HGB CONC 32.5 G/DL (32.0-36.0); MEAN CORPUSCULAR VOLUME 95 FL (80-99); MEAN PLATELET VOLUME 7.9 FL (6.5-10.1); PLATELET COUNT 314 K/UL (150-450); RED BLOOD COUNT 3.88 M/UL (4.20-5.40); RED CELL DISTRIBUTION WIDTH 14.1 % (11.6-14.8); WHITE BLOOD COUNT 12.9 K/UL (4.8-10.8)
[2017-03-08 04:01] LABS: ALANINE AMINOTRANSFERASE 58 U/L (3-33); ALBUMIN/GLOBULIN RATIO 1.3 (1.0-2.7); ANION GAP 11 (5-15); ASPARTATE AMINO TRANSFERASE 49 U/L (5-40); CALCIUM 9.1 mg/dL (8.6-10.2); CARBON DIOXIDE 28 mEQ/L (20-30); CHLORIDE 99 mEQ/L (98-107); HEMOLYSIS 3; SODIUM 138 mEQ/L (135-145); TOTAL PROTEIN 6.3 g/dL (6.6-8.7)
[2017-03-08] MEDS: DuoNeb 0.5-3(2.5)mg/3ml neb HHN PRN ×4 (05:07→17:16)
[2017-03-08 05:10] LABS: TROPONIN I < 0.30 ng/mL (<=0.30)
[2017-03-08] MEDS: methylPREDNISolone Sod Succ 500 MG in NS 110 ML IVPB SCH ×4 (05:56→23:46)
[2017-03-08] MEDS: Promethazine/Codeine 5ml UD ORAL PRN (06:04)
[2017-03-08] MEDS: NovoLOG Insulin Flexpen SUBQ SCH ×6 (06:07→23:45)
[2017-03-08] MEDS ORDERED: Diltiazem 25mg/5ml IV ONE (08:15)
[2017-03-08] MEDS: Digoxin 0.125mg tab ORAL SCH (08:37)
[2017-03-08] MEDS: Norco 5mg/325mg tab ORAL PRN ×2 (08:37→17:59)
[2017-03-08 09:05] LABS: ANISOCYTOSIS 1+; BAND NEUTROPHILS % (MANUAL) 0 % (0-8); BASOPHILS % (MANUAL) 0 % (0-2); EOSINOPHILS % (MANUAL) 0 % (0-3); LYMPHOCYTES % (MANUAL) 8 % (20-45); NEUTROPHILS % (MANUAL) 89 % (45-75); PLATELET ESTIMATE ADEQUATE; PLATELET MORPHOLOGY NORMAL; TOTAL CELLS COUNTED 100
--- NOTE | 2017-03-08 09:37 | Pulmonolgy Critical Care Note ---
Critical Care - Asmt/Plan Problems: (1) Acute respiratory failure (2) Healthcare-associated pneumonia (3) COPD (chronic obstructive pulmonary disease) (4) Congestive heart failure (CHF) (5) Hypertensive emergency (6) Atrial fibrillation (7) Cardiomyopathy (8) Diabetes mellitus Respiratory: monitor respiratory rate, adjust FIO2, CXR Cardiac: continue to monitor HR/BP Renal: F/U I&O, check electrolytes, other - increase the dose of lasix Infectious Disease: check cultures, continue antibiotics Gastrointestinal: continue feedings/current rate Endocrine: monitor blood sugar Hematologic: monitor H/H Neurologic: PRN Ativan Affect: PRN ativan Prophylaxis: Protonix Discussed with: nurses, consultants, patient case coordinatormanager civil - Objective Last 24 Hour Vital Signs Date Time Temp Pulse Resp B/P Pulse Ox O2 Delivery O2 Flow Rate FiO2 03/08/17 09:25 129 40 100 Bi-pap 50 03/08/17 08:37 130 03/08/17 08:15 159 175/105 03/08/17 07:56 154 31 97 Facial 50 03/08/17 07:00 90 20 128/61 98 Nasal Cannula 30 03/08/17 06:30 104 21 120/59 98 Nasal Cannula 30 03/08/17 06:00 109 21 120/59 96 Nasal Cannula 30 03/08/17 05:30 120 22 134/73 96 Nasal Cannula 30 03/08/17 05:13 88 17 100 Nasal Cannula 3.0 32 03/08/17 05:07 102 18 99 Nasal Cannula 3.0 32 03/08/17 05:00 102 22 128/95 99 Nasal Cannula 30 03/08/17 04:30 93 20 134/88 99 Nasal Cannula 30 03/08/17 04:00 88 03/08/17 04:00 30 03/08/17 04:00 98.2 88 20 115/64 99 Nasal Cannula 30 03/08/17 03:30 81 22 115/64 100 Nasal Cannula 30 03/08/17 03:11 87 24 99 Facial 30 03/08/17 03:00 81 20 102/59 99 Nasal Cannula 30 03/08/17 02:30 84 20 98/53 99 Nasal Cannula 30 03/08/17 02:00 84 16 121/65 99 Nasal Cannula 30 03/08/17 01:30 89 19 95/48 99 Nasal Cannula 30 03/08/17 01:03 102 18 99 Facial 30 03/08/17 01:00 95 18 111/55 99 Nasal Cannula 30 03/08/17 00:30 103 19 105/59 99 Nasal Cannula 30 03/08/17 00:00 98.0 98 20 105/59 99 Nasal Cannula 30 03/08/17 00:00 103 03/08/17 00:00 30 03/07/17 23:30 108 20 130/94 99 Nasal Cannula 3.0 03/07/17 23:29 112 22 100 Facial 30 03/07/17 23:22 121 21 100 Nasal Cannula 3.0 32 03/07/17 23:16 145 20 100 Nasal Cannula 3.0 32 03/07/17 23:00 105 22 130/94 100 Nasal Cannula 3.0 03/07/17 22:30 95 18 97/42 100 Nasal Cannula 3.0 03/07/17 22:00 96 18 97/42 100 Nasal Cannula 3.0 03/07/17 21:30 97 18 106/73 100 Nasal Cannula 3.0 03/07/17 21:00 98 15 92/55 99 Nasal Cannula 3.0 03/07/17 20:30 101 20 92/55 99 Nasal Cannula 3.0 03/07/17 20:02 103 30 100 Nasal Cannula 3.0 32 03/07/17 20:00 106 03/07/17 20:00 98.5 101 20 96/46 99 Nasal Cannula 3.0 03/07/17 19:55 108 23 100 Nasal Cannula 3.0 32 03/07/17 19:30 128 17 134/106 99 Nasal Cannula 3.0 03/07/17 19:30 96 106/73 03/07/17 19:00 81 18 141/54 99 Nasal Cannula 3.0 03/07/17 18:30 97 18 115/55 99 Nasal Cannula 3.0 03/07/17 18:00 106 20 105/52 99 Nasal Cannula 3.0 03/07/17 17:30 113 18 122/75 99 Nasal Cannula 3.0 03/07/17 17:00 101 18 133/68 98 Nasal Cannula 3.0 03/07/17 16:50 103 24 100 Nasal Cannula 3.0 32 03/07/17 16:45 99 22 100 Nasal Cannula 3.0 32 03/07/17 16:30 97 19 111/72 98 Nasal Cannula 3.0 03/07/17 16:00 98.3 92 20 106/62 99 Nasal Cannula 3.0 03/07/17 16:00 102 03/07/17 15:30 106 19 120/77 98 Nasal Cannula 3.0 03/07/17 15:00 97 19 114/57 98 Nasal Cannula 3.0 03/07/17 14:30 105 19 109/52 98 Nasal Cannula 3.0 03/07/17 14:00 118 20 130/84 98 Nasal Cannula 3.0 03/07/17 13:30 129 20 151/84 100 Nasal Cannula 3.0 03/07/17 13:15 108 22 100 Nasal Cannula 3.0 32 03/07/17 13:00 103 19 146/91 100 Nasal Cannula 3.0 03/07/17 12:30 98 19 131/76 100 Nasal Cannula 3.0 03/07/17 12:00 98.4 95 20 116/63 99 Nasal Cannula 3.0 03/07/17 12:00 98 03/07/17 11:30 81 20 120/68 99 Nasal Cannula 3.0 03/07/17 11:00 94 20 100/68 99 Nasal Cannula 3.0 03/07/17 10:30 96 20 104/49 98 Nasal Cannula 3.0 03/07/17 10:00 93 19 103/50 99 Nasal Cannula 3.0 Status: awake Condition: critical HEENT: atraumatic Neck: full ROM Heart: HR/BP stable, regular Abdomen: non-tender, active bowel sounds, feeding tube Extremities: no C/C/E, edema Decubiti: location Micro: Microbiology Date/Time Source Procedure Growth Status 03/06/17 09:55 Blood Blood Culture - Preliminary NO GROWTH AFTER 24 HOURS Resulted 03/06/17 09:55 Blood Blood Culture - Preliminary NO GROWTH AFTER 24 HOURS Resulted Accucheck: 324 Critical Care - Subjective ROS Limited/Unobtainable: No ICU Day: 3 Interval Events: on bipap EKG Rhythm: Atrial Fibrillation FI02: 50 Sputum Amount: None Fluids: none Drips: cardizem drip I&O: Intake and Output 03/07/17 03/08/17 19:00 07:00 Intake Total 835.5 ml 759.5 ml Output Total 1850 ml 1100 ml Balance -1014.5 ml -340.5 ml Intake Oral 400 ml 300 ml IV Total 435.5 ml 459.5 ml Output Urine Total 1850 ml 1100 ml # Voids 3 CXR: pulmonary edema Labs: Laboratory Tests Test 03/08/17 03:25 White Blood Count 12.9 K/UL (4.8-10.8) H Red Blood Count 3.88 M/UL (4.20-5.40) L Hemoglobin 11.9 G/DL (12.0-16.0) L Hematocrit 36.7 % (37.0-47.0) L Mean Corpuscular Volume 95 FL (80-99) Mean Corpuscular Hemoglobin 30.7 PG (27.0-31.0) Mean Corpuscular Hemoglobin Concent 32.5 G/DL (32.0-36.0) Red Cell Distribution Width 14.1 % (11.6-14.8) Platelet Count 314 K/UL (150-450) Mean Platelet Volume 7.9 FL (6.5-10.1) Neutrophils (%) (Auto) % (45.0-75.0) Lymphocytes (%) (Auto) % (20.0-45.0) Monocytes (%) (Auto) % (1.0-10.0) Eosinophils (%) (Auto) % (0.0-3.0) Basophils (%) (Auto) % (0.0-2.0) Differential Total Cells Counted 100 Neutrophils % (Manual) 89 % (45-75) H Lymphocytes % (Manual) 8 % (20-45) L Monocytes % (Manual) 3 % (1-10) Eosinophils % (Manual) 0 % (0-3) Basophils % (Manual) 0 % (0-2) Band Neutrophils 0 % (0-8) Platelet Estimate Adequate Platelet Morphology Normal Anisocytosis 1+ Prothrombin Time Pending Prothromb Time International Ratio Pending Sodium Level 138 mEQ/L (135-145) Potassium Level 4.0 mEQ/L (3.4-4.9) Chloride Level 99 mEQ/L (98-107) Carbon Dioxide Level 28 mEQ/L (20-30) Anion Gap 11 (5-15) Blood Urea Nitrogen 20 mg/dL (7-23) Creatinine 1.0 mg/dL (0.5-0.9) H Estimat Glomerular Filtration Rate mL/min (>60) Glucose Level 354 mg/dL (74-106) H Calcium Level 9.1 mg/dL (8.6-10.2) Total Bilirubin 0.4 mg/dL (0.0-1.2) Aspartate Amino Transf (AST/SGOT) 49 U/L (5-40) H Alanine Aminotransferase (ALT/SGPT) 58 U/L (3-33) H Alkaline Phosphatase 100 U/L (35-104) Troponin I < 0.30 ng/mL (<=0.30) Pro-B-Type Natriuretic Peptide 5746 pg/mL (0-450) H Total Protein 6.3 g/dL (6.6-8.7) L Albumin 3.6 g/dL (3.5-5.2) Globulin 2.7 g/dL Albumin/Globulin Ratio 1.3 (1.0-2.7) THANIA ACKERMAN Mar 08, 2017 09:37
[2017-03-08] MEDS ORDERED: LORazepam Inj 2mg/ml 1ml IV PRN (10:00)
--- NOTE | 2017-03-08 10:48 | Diagnostic Imaging Report ---
Indication: Dyspnea Comparison: 03/06/17 A single view chest radiograph was obtained. Findings: Interstitial densities demonstrated with cardiomegaly. Findings appear unchanged. Impression: Interstitial edema suspected. No significant change.
[2017-03-08 11:00] LABS: INR 3.8 (0.9-1.1)
[2017-03-08] MEDS ORDERED: Tubing Ominiflow Primary IV ONE (17:17)
--- NOTE | 2017-03-08 20:10 | Diagnostic Imaging Report ---
APPROVED REPORT CPT Code: 03637 Present Symptoms Lower Extremity Edema: Shortness of breath BILATERAL: Imaging reveals a patent deep venous system bilaterally. There is no evidence of thrombus within the femoral, popliteal or tibial segments. The greater saphenous veins are also within normal limits. Doppler indicates normal spontaneous flow within these segments.
--- NOTE | 2017-03-08 21:52 | Cardiology Progress Note ---
Assessment/Plan Assessment/Plan rate control witn IV Diltiazem Subjective Subjective in the morning had one more episode of atrial fibrillation with RVR at the time of visit, she is resting comfortably and HR is controlled Objective Last 24 Hour Vital Signs Date Time Temp Pulse Resp B/P Pulse Ox O2 Delivery O2 Flow Rate FiO2 03/08/17 21:30 80 16 99 Facial 35 03/08/17 21:30 79 16 109/65 99 Bi-pap 35 03/08/17 21:00 75 20 108/58 100 Bi-pap 35 03/08/17 20:30 78 19 108/58 100 Bi-pap 35 03/08/17 20:00 97.8 81 26 97/69 100 Bi-pap 35 03/08/17 20:00 88 03/08/17 19:30 104 20 99 Facial 35 03/08/17 19:30 105 20 134/72 99 Bi-pap 35 03/08/17 19:00 82 19 118/59 100 Bi-pap 35 03/08/17 18:30 84 20 118/58 100 Bi-pap 35 03/08/17 18:00 89 19 125/56 100 Bi-pap 35 03/08/17 17:30 83 19 123/75 100 Bi-pap 35 03/08/17 17:26 86 20 100 Bi-pap 35 03/08/17 17:13 81 20 100 Facial 35 03/08/17 17:10 99 30 100 Bi-pap 35 03/08/17 17:00 98 19 123/76 100 Bi-pap 35 03/08/17 16:30 88 19 123/75 100 Bi-pap 35 03/08/17 16:00 77 03/08/17 16:00 98.2 84 19 103/46 99 Bi-pap 35 03/08/17 16:00 35 03/08/17 15:30 75 19 90/37 99 Bi-pap 35 03/08/17 15:16 78 20 100 Facial 35 03/08/17 15:00 84 19 90/43 99 Bi-pap 35 03/08/17 14:30 84 19 102/53 99 Bi-pap 40 03/08/17 14:00 105 19 103/40 99 Bi-pap 40 03/08/17 13:52 95 25 100 Facial 40 03/08/17 13:30 105 20 138/76 99 Nasal Cannula 3.0 03/08/17 13:18 101 23 100 Nasal Cannula 3.0 32 03/08/17 13:08 99 24 100 Nasal Cannula 3.0 32 03/08/17 13:00 111 20 135/75 100 Nasal Cannula 3.0 03/08/17 12:30 95 20 115/67 100 Bi-pap 55 03/08/17 12:00 40 03/08/17 12:00 98.1 78 18 106/64 100 Bi-pap 55 03/08/17 12:00 78 03/08/17 11:30 78 20 114/62 100 Bi-pap 55 03/08/17 11:02 85 22 100 Facial 50 03/08/17 11:00 76 20 111/69 100 Bi-pap 55 03/08/17 10:30 82 20 127/48 100 Bi-pap 55 03/08/17 10:13 98 117/58 03/08/17 10:00 98 23 117/58 100 Bi-pap 55 03/08/17 09:37 127 30 100 Bi-pap 50 03/08/17 09:30 95 30 120/58 99 Bi-pap 55 03/08/17 09:29 134 30 100 Facial 50 03/08/17 09:25 129 40 100 Bi-pap 50 03/08/17 09:00 139 32 181/105 99 Bi-pap 55 03/08/17 08:37 130 03/08/17 08:30 146 34 146/101 98 Bi-pap 55 03/08/17 08:15 159 175/105 03/08/17 08:00 150 30 140/77 98 Bi-pap 55 03/08/17 08:00 55 03/08/17 08:00 140 03/08/17 07:56 154 31 97 Facial 50 03/08/17 07:30 98.1 152 20 175/105 98 Bi-pap 30 03/08/17 07:00 90 20 128/61 98 Nasal Cannula 30 03/08/17 06:30 104 21 120/59 98 Nasal Cannula 30 03/08/17 06:00 109 21 120/59 96 Nasal Cannula 30 03/08/17 05:30 120 22 134/73 96 Nasal Cannula 30 03/08/17 05:13 88 17 100 Nasal Cannula 3.0 32 03/08/17 05:07 102 18 99 Nasal Cannula 3.0 32 03/08/17 05:00 102 22 128/95 99 Nasal Cannula 30 03/08/17 04:30 93 20 134/88 99 Nasal Cannula 30 03/08/17 04:00 88 03/08/17 04:00 30 03/08/17 04:00 98.2 88 20 115/64 99 Nasal Cannula 30 03/08/17 03:30 81 22 115/64 100 Nasal Cannula 30 03/08/17 03:11 87 24 99 Facial 30 03/08/17 03:00 81 20 102/59 99 Nasal Cannula 30 03/08/17 02:30 84 20 98/53 99 Nasal Cannula 30 03/08/17 02:00 84 16 121/65 99 Nasal Cannula 30 03/08/17 01:30 89 19 95/48 99 Nasal Cannula 30 03/08/17 01:03 102 18 99 Facial 30 03/08/17 01:00 95 18 111/55 99 Nasal Cannula 30 03/08/17 00:30 103 19 105/59 99 Nasal Cannula 30 03/08/17 00:00 98.0 98 20 105/59 99 Nasal Cannula 30 03/08/17 00:00 103 03/08/17 00:00 30 03/07/17 23:30 108 20 130/94 99 Nasal Cannula 3.0 03/07/17 23:29 112 22 100 Facial 30 03/07/17 23:22 121 21 100 Nasal Cannula 3.0 32 03/07/17 23:16 145 20 100 Nasal Cannula 3.0 32 03/07/17 23:00 105 22 130/94 100 Nasal Cannula 3.0 03/07/17 22:30 95 18 97/42 100 Nasal Cannula 3.0 03/07/17 22:00 96 18 97/42 100 Nasal Cannula 3.0 General Appearance: alert EENT: PERRL/EOMI Neck: no JVD Rhythm: Afib Cardiovascular: tachycardia Respiratory/Chest: expiratory wheezing Abdomen: soft Extremities: normal capillary refill Intake and Output 03/07/17 03/08/17 19:00 07:00 Intake Total 835.5 ml 759.5 ml Output Total 1850 ml 1100 ml Balance -1014.5 ml -340.5 ml Intake Oral 400 ml 300 ml IV Total 435.5 ml 459.5 ml Output Urine Total 1850 ml 1100 ml # Voids 3 Laboratory Tests Test 03/08/17 03:25 03/08/17 10:35 White Blood Count 12.9 K/UL (4.8-10.8) H Red Blood Count 3.88 M/UL (4.20-5.40) L Hemoglobin 11.9 G/DL (12.0-16.0) L Hematocrit 36.7 % (37.0-47.0) L Mean Corpuscular Volume 95 FL (80-99) Mean Corpuscular Hemoglobin 30.7 PG (27.0-31.0) Mean Corpuscular Hemoglobin Concent 32.5 G/DL (32.0-36.0) Red Cell Distribution Width 14.1 % (11.6-14.8) Platelet Count 314 K/UL (150-450) Mean Platelet Volume 7.9 FL (6.5-10.1) Neutrophils (%) (Auto) % (45.0-75.0) Lymphocytes (%) (Auto) % (20.0-45.0) Monocytes (%) (Auto) % (1.0-10.0) Eosinophils (%) (Auto) % (0.0-3.0) Basophils (%) (Auto) % (0.0-2.0) Differential Total Cells Counted 100 Neutrophils % (Manual) 89 % (45-75) H Lymphocytes % (Manual) 8 % (20-45) L Monocytes % (Manual) 3 % (1-10) Eosinophils % (Manual) 0 % (0-3) Basophils % (Manual) 0 % (0-2) Band Neutrophils 0 % (0-8) Platelet Estimate Adequate Platelet Morphology Normal Anisocytosis 1+ Sodium Level 138 mEQ/L (135-145) Potassium Level 4.0 mEQ/L (3.4-4.9) Chloride Level 99 mEQ/L (98-107) Carbon Dioxide Level 28 mEQ/L (20-30) Anion Gap 11 (5-15) Blood Urea Nitrogen 20 mg/dL (7-23) Creatinine 1.0 mg/dL (0.5-0.9) H Estimat Glomerular Filtration Rate mL/min (>60) Glucose Level 354 mg/dL (74-106) H Calcium Level 9.1 mg/dL (8.6-10.2) Total Bilirubin 0.4 mg/dL (0.0-1.2) Aspartate Amino Transf (AST/SGOT) 49 U/L (5-40) H Alanine Aminotransferase (ALT/SGPT) 58 U/L (3-33) H Alkaline Phosphatase 100 U/L (35-104) Troponin I < 0.30 ng/mL (<=0.30) Pro-B-Type Natriuretic Peptide 5746 pg/mL (0-450) H Total Protein 6.3 g/dL (6.6-8.7) L Albumin 3.6 g/dL (3.5-5.2) Globulin 2.7 g/dL Albumin/Globulin Ratio 1.3 (1.0-2.7) Prothrombin Time 40.0 SEC (9.30-11.50) H Prothromb Time International Ratio 3.8 (0.9-1.1) H Microbiology Date/Time Source Procedure Growth Status 03/06/17 09:55 Blood Blood Culture - Preliminary NO GROWTH AFTER 24 HOURS Resulted 03/06/17 09:55 Blood Blood Culture - Preliminary NO GROWTH AFTER 24 HOURS Resulted 03/06/17 10:02 Nasal Nares MRSA Culture - Final NO METHICILLIN RESISTANT STAPH AUREUS... Complete 03/06/17 10:02 Rectum VRE Culture - Final Enterococcus Faecalis - Vre Complete GREGORY ANDRADE Mar 08, 2017 21:52
[2017-03-09] VITALS (46 sets, daily range): BP systolic 99–166; BP diastolic 47–122
[2017-03-09] MEDS: Piperacillin/Tazobactam 3.375 GM in D5W 110 ML IVPB SCH ×3 (02:00→17:24)
[2017-03-09] MEDS: NovoLOG Insulin Flexpen SUBQ SCH ×8 (02:03→20:41)
[2017-03-09 05:12] LABS: MEAN CORPUSCULAR HEMOGLOBIN 30.2 PG (27.0-31.0); MEAN CORPUSCULAR HGB CONC 32.2 G/DL (32.0-36.0); MEAN CORPUSCULAR VOLUME 94 FL (80-99); MEAN PLATELET VOLUME 7.9 FL (6.5-10.1); PLATELET COUNT 314 K/UL (150-450); RED BLOOD COUNT 3.96 M/UL (4.20-5.40); RED CELL DISTRIBUTION WIDTH 14.5 % (11.6-14.8); WHITE BLOOD COUNT 11.7 K/UL (4.8-10.8)
[2017-03-09 05:34] LABS: INR 4.1 (0.9-1.1)
[2017-03-09 05:41] LABS: ALANINE AMINOTRANSFERASE 63 U/L (3-33); ALBUMIN/GLOBULIN RATIO 1.2 (1.0-2.7); ANION GAP 11 (5-15); ASPARTATE AMINO TRANSFERASE 33 U/L (5-40); CALCIUM 8.6 mg/dL (8.6-10.2); CARBON DIOXIDE 32 mEQ/L (20-30); CHLORIDE 100 mEQ/L (98-107); CREATININE 0.9 mg/dL (0.5-0.9); HEMOLYSIS 4; POTASSIUM 3.3 mEQ/L (3.4-4.9); SODIUM 143 mEQ/L (135-145); TOTAL PROTEIN 6.5 g/dL (6.6-8.7)
[2017-03-09 05:48] LABS: DIGOXIN 0.7 ng/mL (0.5-2.0)
[2017-03-09] MEDS: methylPREDNISolone Sod Succ 500 MG in NS 110 ML IVPB SCH (05:56)
[2017-03-09 07:11] LABS: ANISOCYTOSIS 1+; BAND NEUTROPHILS % (MANUAL) 0 % (0-8); BASOPHILS % (MANUAL) 0 % (0-2); EOSINOPHILS % (MANUAL) 0 % (0-3); LYMPHOCYTES % (MANUAL) 11 % (20-45); NEUTROPHILS % (MANUAL) 88 % (45-75); PLATELET ESTIMATE ADEQUATE; PLATELET MORPHOLOGY NORMAL; TOTAL CELLS COUNTED 100
[2017-03-09] MEDS: Digoxin 0.125mg tab ORAL SCH (08:17)
--- NOTE | 2017-03-09 08:31 | Cardiology Report ---
APPROVED REPORT EXAM: Two-dimensional and M-mode echocardiogram with Doppler and color Doppler. INDICATION Left ventricular function M-Mode DIMENSIONS IVSd0.9 (0.7-1.1cm)Left Atrium (MM)4.5 (1.6-4.0cm) LVDd5.1 (3.5-5.6cm)Aortic Root2.4 (2.0-3.7cm) PWd0.9 (0.7-1.1cm)Aortic Cusp Exc.1.5 (1.5-2.0cm) LVDs4.1 (2.5-4.0cm) PWs0.9 cm Technically difficult study due to poor acoustic windows. Normal left ventricular chamber size. Global left ventricular hypokinesia partly due to atrila arrhythmias. Left ventricular ejection fraction is estimated to be 30-35%. Mild left ventricular hypertrophy. No evidence of pericardial fat or effusion. Moderate bi-atrial enlargement by 2D. Focal aortic valve sclerosis with adequate cusp excursion Thickened mitral valve leaflets with normal excursion. Mitral annulus and aortic root calcification. Pulmonic valve not well visualized. Normal tricuspid valve structure. IVC dilated at 2.4cm with no physiological collapse. A color flow and spectral Doppler study was performed and revealed: No aortic regurgitation. Moderate mitral regurgitation. Left ventricular diastolic dysfunction not obtainable due to A-FIB. Mild tricuspid regurgitation. Tricuspid systolic velocities suggests peak right ventricular systolic pressure of 42 mmHg Consistent with mild pulmonary hypertension.
[2017-03-09] MEDS: DuoNeb 0.5-3(2.5)mg/3ml neb HHN PRN (09:12)
--- NOTE | 2017-03-09 10:03 | Pulmonolgy Critical Care Note ---
Critical Care - Asmt/Plan Problems: (1) Acute respiratory failure (2) Healthcare-associated pneumonia (3) COPD (chronic obstructive pulmonary disease) (4) Congestive heart failure (CHF) (5) Hypertensive emergency (6) Atrial fibrillation (7) Cardiomyopathy (8) Diabetes mellitus Respiratory: monitor respiratory rate, adjust FIO2, CXR Cardiac: continue pressors, continue to monitor HR/BP Renal: F/U I&O, keep IV fluid Infectious Disease: check cultures, continue antibiotics - on zosyn, other - no sputum yet Gastrointestinal: continue feedings/current rate Endocrine: monitor blood sugar, check HgA1C, continue sliding scale insulin Hematologic: monitor H/H, transfuse if hgb<8.5 Neurologic: PRN Ativan, PRN Morphine, keep patient comfortable Disposition: keep in ICU Notes Reviewed: cardio Discussed with: nurses, consultants, window casermanager ent - Objective Last 24 Hour Vital Signs Date Time Temp Pulse Resp B/P Pulse Ox O2 Delivery O2 Flow Rate FiO2 03/09/17 09:30 101 28 136/63 98 Nasal Cannula 3.0 03/09/17 09:12 98 36 99 Nasal Cannula 2.0 03/09/17 09:04 86 38 99 Facial 30 03/09/17 09:00 93 30 119/61 99 Nasal Cannula 3.0 03/09/17 08:30 109 29 158/122 99 Nasal Cannula 3.0 03/09/17 08:17 87 03/09/17 08:00 75 03/09/17 08:00 98.1 81 24 134/90 98 Bi-pap 30 03/09/17 07:30 83 23 131/78 98 Bi-pap 30 03/09/17 07:10 75 20 99 Facial 30 03/09/17 07:00 73 20 118/68 100 Bi-pap 35 03/09/17 06:30 74 21 130/67 99 Bi-pap 35 03/09/17 06:00 95 27 120/83 99 Nasal Cannula 3.0 03/09/17 05:30 78 20 97 03/09/17 05:30 78 28 117/56 99 Nasal Cannula 3.0 03/09/17 05:00 77 28 113/61 99 Nasal Cannula 3.0 03/09/17 04:30 77 28 111/88 99 Nasal Cannula 3.0 03/09/17 04:00 98.0 66 15 110/64 93 Nasal Cannula 3.0 03/09/17 04:00 70 03/09/17 03:30 72 11 110/57 100 Bi-pap 35 03/09/17 03:30 70 20 100 Facial 35 03/09/17 03:00 75 15 117/60 100 Bi-pap 35 03/09/17 02:30 88 20 114/95 100 Bi-pap 35 03/09/17 02:03 62 104/55 03/09/17 02:00 67 20 114/58 99 Bi-pap 35 03/09/17 01:30 62 15 104/55 100 Bi-pap 35 03/09/17 01:30 72 21 100 Facial 35 03/09/17 01:00 76 15 111/55 99 Bi-pap 35 03/09/17 00:30 73 20 123/64 100 Bi-pap 35 03/09/17 00:00 75 03/09/17 00:00 97.8 74 29 102/47 100 Bi-pap 35 03/09/17 00:00 35 03/08/17 23:30 73 16 103/56 100 Bi-pap 35 03/08/17 23:30 77 21 100 Facial 35 03/08/17 23:00 74 17 100/61 99 Bi-pap 35 03/08/17 23:00 78 17 103/56 99 Bi-pap 35 03/08/17 22:30 72 17 111/58 100 Bi-pap 35 03/08/17 22:00 71 22 111/58 99 Bi-pap 35 03/08/17 21:30 80 16 99 Facial 35 03/08/17 21:30 79 16 109/65 99 Bi-pap 35 03/08/17 21:00 75 20 108/58 100 Bi-pap 35 03/08/17 20:30 78 19 108/58 100 Bi-pap 35 03/08/17 20:00 97.8 81 26 97/69 100 Bi-pap 35 03/08/ 20:00 88 03/08/17 20:00 35 03/08/17 19:30 104 20 99 Facial 35 03/08/17 19:30 105 20 134/72 99 Bi-pap 35 03/08/ 19:00 82 19 118/59 100 Bi-pap 35 03/08/ 18:30 84 20 118/58 100 Bi-pap 35 03/08/17 18:00 89 19 125/56 100 Bi-pap 35 03/08/17 17:30 83 19 123/75 100 Bi-pap 35 03/08/17 17:26 86 20 100 Bi-pap 35 03/08/17 17:13 81 20 100 Facial 35 03/08/17 17:10 99 30 100 Bi-pap 35 03/08/17 17:00 98 19 123/76 100 Bi-pap 35 03/08/17 16:30 88 19 123/75 100 Bi-pap 35 03/08/17 16:00 77 03/08/17 16:00 98.2 84 19 103/46 99 Bi-pap 35 03/08/17 16:00 35 03/08/17 15:30 75 19 90/37 99 Bi-pap 35 03/08/17 15:16 78 20 100 Facial 35 03/08/17 15:00 84 19 90/43 99 Bi-pap 35 03/08/17 14:30 84 19 102/53 99 Bi-pap 40 03/08/17 14:00 105 19 103/40 99 Bi-pap 40 03/08/17 13:52 95 25 100 Facial 40 03/08/17 13:30 105 20 138/76 99 Nasal Cannula 3.0 03/08/17 13:18 101 23 100 Nasal Cannula 3.0 32 03/08/17 13:08 99 24 100 Nasal Cannula 3.0 32 03/08/17 13:00 111 20 135/75 100 Nasal Cannula 3.0 03/08/17 12:30 95 20 115/67 100 Bi-pap 55 03/08/17 12:00 40 03/08/17 12:00 98.1 78 18 106/64 100 Bi-pap 55 03/08/17 12:00 78 03/08/17 11:30 78 20 114/62 100 Bi-pap 55 03/08/17 11:02 85 22 100 Facial 50 03/08/17 11:00 76 20 111/69 100 Bi-pap 55 03/08/17 10:30 82 20 127/48 100 Bi-pap 55 03/08/17 10:13 98 117/58 Status: awake Condition: critical, grave HEENT: atraumatic, normocephalic Neck: full ROM Lungs: chest wall tender Heart: HR/BP stable Abdomen: soft, non-tender, active bowel sounds, feeding tube Decubiti: location Micro: Microbiology Date/Time Source Procedure Growth Status 03/06/17 10:02 Nasal Nares MRSA Culture - Final NO METHICILLIN RESISTANT STAPH AUREUS... Complete 03/06/17 10:02 Rectum VRE Culture - Final Enterococcus Faecalis - Vre Complete Accucheck: 98 Critical Care - Subjective ROS Limited/Unobtainable: No ICU Day: 3 Interval Events: on and off BIPAP, doing better FI02: 30 Sputum Amount: None I&O: Intake and Output 03/08/17 03/09/17 19:00 07:00 Intake Total 1009.5 ml 688.5 ml Output Total 1240 ml 1450 ml Balance -230.5 ml -761.5 ml Intake Oral 580 ml 180 ml IV Total 429.5 ml 508.5 ml Output Urine Total 1140 ml 1450 ml Stool Total 100 ml CXR: pulmonary edema minimally less. Labs: Laboratory Tests Test 03/08/17 10:35 03/09/17 04:20 Prothrombin Time 40.0 SEC (9.30-11.50) H 44.0 SEC (9.30-11.50) H Prothromb Time International Ratio 3.8 (0.9-1.1) H 4.1 (0.9-1.1) H White Blood Count 11.7 K/UL (4.8-10.8) H Red Blood Count 3.96 M/UL (4.20-5.40) L Hemoglobin 12.0 G/DL (12.0-16.0) Hematocrit 37.2 % (37.0-47.0) Mean Corpuscular Volume 94 FL (80-99) Mean Corpuscular Hemoglobin 30.2 PG (27.0-31.0) Mean Corpuscular Hemoglobin Concent 32.2 G/DL (32.0-36.0) Red Cell Distribution Width 14.5 % (11.6-14.8) Platelet Count 314 K/UL (150-450) Mean Platelet Volume 7.9 FL (6.5-10.1) Neutrophils (%) (Auto) % (45.0-75.0) Lymphocytes (%) (Auto) % (20.0-45.0) Monocytes (%) (Auto) % (1.0-10.0) Eosinophils (%) (Auto) % (0.0-3.0) Basophils (%) (Auto) % (0.0-2.0) Differential Total Cells Counted 100 Neutrophils % (Manual) 88 % (45-75) H Lymphocytes % (Manual) 11 % (20-45) L Monocytes % (Manual) 1 % (1-10) Eosinophils % (Manual) 0 % (0-3) Basophils % (Manual) 0 % (0-2) Band Neutrophils 0 % (0-8) Platelet Estimate Adequate Platelet Morphology Normal Anisocytosis 1+ Sodium Level 143 mEQ/L (135-145) Potassium Level 3.3 mEQ/L (3.4-4.9) L Chloride Level 100 mEQ/L (98-107) Carbon Dioxide Level 32 mEQ/L (20-30) H Anion Gap 11 (5-15) Blood Urea Nitrogen 23 mg/dL (7-23) Creatinine 0.9 mg/dL (0.5-0.9) Estimat Glomerular Filtration Rate mL/min (>60) Glucose Level 182 mg/dL (74-106) #H Calcium Level 8.6 mg/dL (8.6-10.2) Total Bilirubin 0.4 mg/dL (0.0-1.2) Aspartate Amino Transf (AST/SGOT) 33 U/L (5-40) Alanine Aminotransferase (ALT/SGPT) 63 U/L (3-33) H Alkaline Phosphatase 97 U/L (35-104) Pro-B-Type Natriuretic Peptide 5024 pg/mL (0-450) H Total Protein 6.5 g/dL (6.6-8.7) L Albumin 3.6 g/dL (3.5-5.2) Globulin 2.9 g/dL Albumin/Globulin Ratio 1.2 (1.0-2.7) THANIA ACKERMAN Mar 09, 2017 10:03
--- NOTE | 2017-03-09 12:13 | Diagnostic Imaging Report ---
Indication: DYSPNEA Technique: One view of the chest Comparison: 03/08/2017 Findings: The heart is enlarged. There is interim improvement of previously demonstrated interstitial congestion. No new infiltrates. Pleural spaces are clear. Impression: Improved interstitial congestion, over one day
[2017-03-09] MEDS ORDERED: Tubing IV Secondary IV ONE (16:19)
--- NOTE | 2017-03-09 19:49 | Cardiology Progress Note ---
Assessment/Plan Assessment/Plan 1. Chronic obstructive pulmonary disease exacerbation. 2. Systolic congestive heart failure. 3. Atrial fibrillation, permanent. 4. Tachycardia. 5. Diabetes mellitus. 6. Obesity. 7. hypokalemia 8. Hyperthyroidism switch to po Cardizem 60 mg qid diureitc kavon i if bp ok post swtich to po diuretics d/w rn k supplement will add frree t4, truptake Subjective Cardiovascular: Reports: palpitations, Denies: chest pain Respiratory: Reports: shortness of breath Gastrointestinal/Abdominal: Reports: constipated, Denies: abdominal pain Genitourinary: Denies: burning Objective Last 24 Hour Vital Signs Date Time Temp Pulse Resp B/P Pulse Ox O2 Delivery O2 Flow Rate FiO2 03/09/17 19:22 101 157/75 03/09/17 19:00 90 23 120/65 99 Bi-pap 40 03/09/17 18:30 101 24 157/75 99 Nasal Cannula 3.0 03/09/17 18:00 115 24 166/90 99 Nasal Cannula 3.0 03/09/17 17:30 105 26 164/94 99 Nasal Cannula 3.0 03/09/17 17:00 96 26 153/84 99 Bi-pap 40 03/09/17 16:30 98 26 117/57 100 Bi-pap 40 03/09/17 16:00 80 03/09/17 16:00 98.1 73 28 113/65 99 Bi-pap 40 03/09/17 16:00 30 03/09/17 15:30 81 26 99/57 99 Bi-pap 40 03/09/17 15:05 77 25 99 Facial 30 03/09/17 15:00 81 26 113/61 99 Bi-pap 40 03/09/17 14:30 88 26 120/72 98 Bi-pap 40 03/09/17 14:00 97 28 156/85 99 Bi-pap 40 03/09/17 13:30 126 26 138/78 97 Nasal Cannula 3.0 03/09/17 13:00 88 26 129/70 99 Nasal Cannula 3.0 03/09/17 12:30 88 26 152/86 99 Nasal Cannula 3.0 03/09/17 12:00 98.0 99 28 156/81 99 Nasal Cannula 3.0 03/09/17 12:00 87 03/09/17 11:30 95 28 138/70 99 Nasal Cannula 3.0 03/09/17 11:00 94 28 139/92 98 Nasal Cannula 3.0 03/09/17 10:30 89 28 132/66 97 Nasal Cannula 3.0 03/09/17 10:00 99 29 162/57 98 Nasal Cannula 3.0 03/09/17 09:30 101 28 136/63 98 Nasal Cannula 3.0 03/09/17 09:12 98 36 99 Nasal Cannula 2.0 03/09/17 09:04 86 38 99 Facial 30 03/09/17 09:00 93 30 119/61 99 Nasal Cannula 3.0 03/09/17 08:30 109 29 158/122 99 Nasal Cannula 3.0 03/09/17 08:17 87 03/09/17 08:00 75 03/09/17 08:00 98.1 81 24 134/90 98 Bi-pap 30 03/09/17 08:00 30 03/09/17 07:30 83 23 131/78 98 Bi-pap 30 03/09/17 07:10 75 20 99 Facial 30 03/09/17 07:00 73 20 118/68 100 Bi-pap 35 03/09/17 06:30 74 21 130/67 99 Bi-pap 35 03/09/17 06:00 95 27 120/83 99 Nasal Cannula 3.0 03/09/17 05:30 78 20 97 03/09/17 05:30 78 28 117/56 99 Nasal Cannula 3.0 03/09/17 05:00 77 28 113/61 99 Nasal Cannula 3.0 03/09/17 04:30 77 28 111/88 99 Nasal Cannula 3.0 03/09/17 04:00 98.0 66 15 110/64 93 Nasal Cannula 3.0 03/09/17 04:00 70 03/09/17 03:30 72 11 110/57 100 Bi-pap 35 03/09/17 03:30 70 20 100 Facial 35 03/09/17 03:00 75 15 117/60 100 Bi-pap 35 03/09/17 02:30 88 20 114/95 100 Bi-pap 35 03/09/17 02:03 62 104/55 03/09/17 02:00 67 20 114/58 99 Bi-pap 35 03/09/17 01:30 62 15 104/55 100 Bi-pap 35 03/09/17 01:30 72 21 100 Facial 35 03/09/17 01:00 76 15 111/55 99 Bi-pap 35 03/09/17 00:30 73 20 123/64 100 Bi-pap 35 03/09/17 00:00 75 03/09/17 00:00 97.8 74 29 102/47 100 Bi-pap 35 03/09/17 00:00 35 03/08/17 23:30 73 16 103/56 100 Bi-pap 35 03/08/17 23:30 77 21 100 Facial 35 03/08/17 23:00 74 17 100/61 99 Bi-pap 35 03/08/17 23:00 78 17 103/56 99 Bi-pap 35 03/08/17 22:30 72 17 111/58 100 Bi-pap 35 03/08/17 22:00 71 22 111/58 99 Bi-pap 35 03/08/17 21:30 80 16 99 Facial 35 03/08/17 21:30 79 16 109/65 99 Bi-pap 35 03/08/17 21:00 75 20 108/58 100 Bi-pap 35 03/08/17 20:30 78 19 108/58 100 Bi-pap 35 03/08/17 20:00 97.8 81 26 97/69 100 Bi-pap 35 03/08/17 20:00 88 03/08/17 20:00 35 General Appearance: alert, other - on ipap Neck: no JVD Cardiovascular: irregularly irregular Respiratory/Chest: crackles/rales - left bse Abdomen: normal bowel sounds, non tender, soft Extremities: no swelling Intake and Output 03/08/17 03/09/17 19:00 07:00 Intake Total 1009.5 ml 688.5 ml Output Total 1240 ml 1450 ml Balance -230.5 ml -761.5 ml Intake Oral 580 ml 180 ml IV Total 429.5 ml 508.5 ml Output Urine Total 1140 ml 1450 ml Stool Total 100 ml Laboratory Tests Test 03/09/17 04:20 White Blood Count 11.7 K/UL (4.8-10.8) H Red Blood Count 3.96 M/UL (4.20-5.40) L Hemoglobin 12.0 G/DL (12.0-16.0) Hematocrit 37.2 % (37.0-47.0) Mean Corpuscular Volume 94 FL (80-99) Mean Corpuscular Hemoglobin 30.2 PG (27.0-31.0) Mean Corpuscular Hemoglobin Concent 32.2 G/DL (32.0-36.0) Red Cell Distribution Width 14.5 % (11.6-14.8) Platelet Count 314 K/UL (150-450) Mean Platelet Volume 7.9 FL (6.5-10.1) Neutrophils (%) (Auto) % (45.0-75.0) Lymphocytes (%) (Auto) % (20.0-45.0) Monocytes (%) (Auto) % (1.0-10.0) Eosinophils (%) (Auto) % (0.0-3.0) Basophils (%) (Auto) % (0.0-2.0) Differential Total Cells Counted 100 Neutrophils % (Manual) 88 % (45-75) H Lymphocytes % (Manual) 11 % (20-45) L Monocytes % (Manual) 1 % (1-10) Eosinophils % (Manual) 0 % (0-3) Basophils % (Manual) 0 % (0-2) Band Neutrophils 0 % (0-8) Platelet Estimate Adequate Platelet Morphology Normal Anisocytosis 1+ Prothrombin Time 44.0 SEC (9.30-11.50) H Prothromb Time International Ratio 4.1 (0.9-1.1) H Sodium Level 143 mEQ/L (135-145) Potassium Level 3.3 mEQ/L (3.4-4.9) L Chloride Level 100 mEQ/L (98-107) Carbon Dioxide Level 32 mEQ/L (20-30) H Anion Gap 11 (5-15) Blood Urea Nitrogen 23 mg/dL (7-23) Creatinine 0.9 mg/dL (0.5-0.9) Estimat Glomerular Filtration Rate mL/min (>60) Glucose Level 182 mg/dL (74-106) #H Calcium Level 8.6 mg/dL (8.6-10.2) Total Bilirubin 0.4 mg/dL (0.0-1.2) Aspartate Amino Transf (AST/SGOT) 33 U/L (5-40) Alanine Aminotransferase (ALT/SGPT) 63 U/L (3-33) H Alkaline Phosphatase 97 U/L (35-104) Pro-B-Type Natriuretic Peptide 5024 pg/mL (0-450) H Total Protein 6.5 g/dL (6.6-8.7) L Albumin 3.6 g/dL (3.5-5.2) Globulin 2.9 g/dL Albumin/Globulin Ratio 1.2 (1.0-2.7) YOON ROBLEDO Mar 09, 2017 19:49
[2017-03-09] MEDS: Solu-MEDROL 125mg Inj IVP SCH (20:40)
[2017-03-10] VITALS (19 sets, daily range): BP systolic 110–151; BP diastolic 55–89
[2017-03-10] MEDS: Piperacillin/Tazobactam 3.375 GM in D5W 110 ML IVPB SCH ×3 (01:47→20:16)
[2017-03-10] MEDS: Norco 5mg/325mg tab ORAL PRN ×2 (03:02→13:09)
[2017-03-10] MEDS: DuoNeb 0.5-3(2.5)mg/3ml neb HHN PRN ×3 (04:50→13:26)
[2017-03-10 04:52] LABS: MEAN CORPUSCULAR HEMOGLOBIN 30.9 PG (27.0-31.0); MEAN CORPUSCULAR HGB CONC 32.7 G/DL (32.0-36.0); MEAN CORPUSCULAR VOLUME 94 FL (80-99); MEAN PLATELET VOLUME 7.8 FL (6.5-10.1); PLATELET COUNT 277 K/UL (150-450); RED BLOOD COUNT 4.02 M/UL (4.20-5.40); RED CELL DISTRIBUTION WIDTH 13.9 % (11.6-14.8); WHITE BLOOD COUNT 9.5 K/UL (4.8-10.8)
[2017-03-10 04:54] LABS: INR 2.8 (0.9-1.1); PROTHROMBIN TIME 29.2 SEC (9.30-11.50)
[2017-03-10 05:09] LABS: ALANINE AMINOTRANSFERASE 75 U/L (3-33); ALBUMIN/GLOBULIN RATIO 1.1 (1.0-2.7); ANION GAP 13 (5-15); ASPARTATE AMINO TRANSFERASE 44 U/L (5-40); CALCIUM 8.3 mg/dL (8.6-10.2); CARBON DIOXIDE 34 mEQ/L (20-30); CHLORIDE 95 mEQ/L (98-107); CREATININE 0.7 mg/dL (0.5-0.9); HEMOLYSIS 5; POTASSIUM 3.4 mEQ/L (3.4-4.9); SODIUM 142 mEQ/L (135-145); TOTAL PROTEIN 6.8 g/dL (6.6-8.7)
[2017-03-10] MEDS: NovoLOG Insulin Flexpen SUBQ SCH ×4 (05:45→20:55)
--- NOTE | 2017-03-10 07:34 | Pulmonolgy Critical Care Note ---
Critical Care - Asmt/Plan Problems: (1) Acute respiratory failure (2) Healthcare-associated pneumonia (3) COPD (chronic obstructive pulmonary disease) (4) Congestive heart failure (CHF) (5) Hypertensive emergency (6) Atrial fibrillation (7) Cardiomyopathy (8) Diabetes mellitus Respiratory: monitor respiratory rate, adjust FIO2, CXR Cardiac: continue to monitor HR/BP Renal: F/U I&O, keep IV fluid, check electrolytes Infectious Disease: check cultures Gastrointestinal: continue feedings/current rate Endocrine: monitor blood sugar, check HgA1C, continue sliding scale insulin Hematologic: monitor H/H, transfuse if hgb<8.5 Neurologic: PRN Ativan, keep patient comfortable Affect: PRN ativan Prophylaxis: Heparin Disposition: keep in ICU Notes Reviewed: timber framer, cardio Discussed with: nurses, consultants, case briefermanager part - Objective Last 24 Hour Vital Signs Date Time Temp Pulse Resp B/P Pulse Ox O2 Delivery O2 Flow Rate FiO2 03/10/17 07:00 88 21 136/72 98 Bi-pap 30 03/10/17 06:00 88 21 136/69 99 Bi-pap 30 03/10/17 05:43 92 148/72 03/10/17 05:00 92 21 148/72 98 Bi-pap 30 03/10/17 04:51 87 20 100 Bi-pap 03/10/17 04:51 90 20 100 Bi-pap 03/10/17 04:49 87 20 100 03/10/17 04:00 30 03/10/17 04:00 84 03/10/17 04:00 98.2 86 22 135/89 99 Bi-pap 30 03/10/17 03:30 88 20 99 Facial 30 03/10/17 03:00 88 20 134/87 98 Bi-pap 30 03/10/17 02:00 86 23 131/68 96 Bi-pap 30 03/10/17 01:00 79 23 134/64 99 Bi-pap 30 03/10/17 00:56 70 20 100 Facial 30 03/10/17 00:00 98.0 81 22 144/82 99 Bi-pap 30 03/10/17 00:00 30 03/10/17 00:00 81 03/09/17 23:49 68 125/64 03/09/17 23:30 73 20 99 Facial 30 03/09/17 23:00 68 27 125/64 99 Bi-pap 40 03/09/17 22:00 74 29 122/63 98 Bi-pap 40 03/09/17 21:30 96 27 122/63 98 Bi-pap 40 03/09/17 21:30 84 20 97 Facial 30 03/09/17 21:00 86 26 122/66 98 Bi-pap 40 03/09/17 20:40 87 132/74 03/09/17 20:30 84 26 122/66 99 Bi-pap 40 03/09/17 20:00 98.0 87 25 122/63 100 Bi-pap 40 03/09/17 20:00 87 03/09/17 19:30 87 24 132/74 100 Bi-pap 40 03/09/17 19:22 101 157/75 03/09/17 19:00 90 23 120/65 99 Bi-pap 40 03/09/17 19:00 88 21 99 Facial 30 03/09/17 18:30 101 24 157/75 99 Nasal Cannula 3.0 03/09/17 18:00 115 24 166/90 99 Nasal Cannula 3.0 03/09/17 17:30 105 26 164/94 99 Nasal Cannula 3.0 03/09/17 17:00 96 26 153/84 99 Bi-pap 40 03/09/17 16:30 98 26 117/57 100 Bi-pap 40 03/09/17 16:00 80 03/09/17 16:00 98.1 73 28 113/65 99 Bi-pap 40 03/09/17 16:00 30 03/09/17 15:30 81 26 99/57 99 Bi-pap 40 03/09/17 15:05 77 25 99 Facial 30 03/09/17 15:00 81 26 113/61 99 Bi-pap 40 03/09/17 14:30 88 26 120/72 98 Bi-pap 40 03/09/17 14:00 97 28 156/85 99 Bi-pap 40 03/09/17 13:30 126 26 138/78 97 Nasal Cannula 3.0 03/09/17 13:00 88 26 129/70 99 Nasal Cannula 3.0 03/09/17 12:30 88 26 152/86 99 Nasal Cannula 3.0 03/09/17 12:00 98.0 99 28 156/81 99 Nasal Cannula 3.0 03/09/17 12:00 87 03/09/17 11:30 95 28 138/70 99 Nasal Cannula 3.0 03/09/17 11:00 94 28 139/92 98 Nasal Cannula 3.0 03/09/17 10:30 89 28 132/66 97 Nasal Cannula 3.0 03/09/17 10:00 99 29 162/57 98 Nasal Cannula 3.0 03/09/17 09:30 101 28 136/63 98 Nasal Cannula 3.0 03/09/17 09:12 98 36 99 Nasal Cannula 2.0 03/09/17 09:04 86 38 99 Facial 30 03/09/17 09:00 93 30 119/61 99 Nasal Cannula 3.0 03/09/17 08:30 109 29 158/122 99 Nasal Cannula 3.0 03/09/17 08:17 87 03/09/17 08:00 75 03/09/17 08:00 98.1 81 24 134/90 98 Bi-pap 30 03/09/17 08:00 30 Status: awake Condition: critical HEENT: normocephalic Neck: full ROM Lungs: chest wall tender Heart: HR/BP stable, HR/BP unstable, regular Abdomen: soft, non-tender, active bowel sounds Extremities: no C/C/E, edema Decubiti: location Accucheck: 313 Critical Care - Subjective ROS Limited/Unobtainable: No ICU Day: 5 Condition: critical, improving EKG Rhythm: Atrial Fibrillation FI02: 30 Sputum Amount: None I&O: Intake and Output 03/09/17 03/10/17 19:00 07:00 Intake Total 975.5 ml 610.5 ml Output Total 2589 ml 3100 ml Balance -1613.5 ml -2489.5 ml Intake Oral 500 ml 410 ml IV Total 425.5 ml 200.5 ml Other 50 ml Output Urine Total 2589 ml 3100 ml # Bowel Movements 4 CXR: pulmonary edema resolved Labs: Laboratory Tests Test 03/10/17 03:50 White Blood Count 9.5 K/UL (4.8-10.8) Red Blood Count 4.02 M/UL (4.20-5.40) L Hemoglobin 12.4 G/DL (12.0-16.0) Hematocrit 37.9 % (37.0-47.0) Mean Corpuscular Volume 94 FL (80-99) Mean Corpuscular Hemoglobin 30.9 PG (27.0-31.0) Mean Corpuscular Hemoglobin Concent 32.7 G/DL (32.0-36.0) Red Cell Distribution Width 13.9 % (11.6-14.8) Platelet Count 277 K/UL (150-450) Mean Platelet Volume 7.8 FL (6.5-10.1) Neutrophils (%) (Auto) % (45.0-75.0) Lymphocytes (%) (Auto) % (20.0-45.0) Monocytes (%) (Auto) % (1.0-10.0) Eosinophils (%) (Auto) % (0.0-3.0) Basophils (%) (Auto) % (0.0-2.0) Prothrombin Time 29.2 SEC (9.30-11.50) H Prothromb Time International Ratio 2.8 (0.9-1.1) H Sodium Level 142 mEQ/L (135-145) Potassium Level 3.4 mEQ/L (3.4-4.9) Chloride Level 95 mEQ/L (98-107) L Carbon Dioxide Level 34 mEQ/L (20-30) H Anion Gap 13 (5-15) Blood Urea Nitrogen 20 mg/dL (7-23) Creatinine 0.7 mg/dL (0.5-0.9) Estimat Glomerular Filtration Rate mL/min (>60) Glucose Level 317 mg/dL (74-106) #H Calcium Level 8.3 mg/dL (8.6-10.2) L Total Bilirubin 0.5 mg/dL (0.0-1.2) Aspartate Amino Transf (AST/SGOT) 44 U/L (5-40) H Alanine Aminotransferase (ALT/SGPT) 75 U/L (3-33) H Alkaline Phosphatase 102 U/L (35-104) Pro-B-Type Natriuretic Peptide Pending Total Protein 6.8 g/dL (6.6-8.7) Albumin 3.7 g/dL (3.5-5.2) Globulin 3.1 g/dL Albumin/Globulin Ratio 1.1 (1.0-2.7) Free Thyroxine 1.81 ng/dL (0.86-1.85) Free Triiodothyronine Pending Triiodothyronine (T3) Uptake Pending THANIA ACKERMAN Mar 10, 2017 07:34
[2017-03-10] MEDS: Solu-MEDROL 125mg Inj IVP SCH ×2 (09:17→20:53)
[2017-03-10] MEDS: Digoxin 0.125mg tab ORAL SCH (09:18)
[2017-03-10] MEDS ORDERED: KCl 10% 40mEq/30ml liquid ORAL ONE (11:00)
--- NOTE | 2017-03-10 12:02 | Diagnostic Imaging Report ---
Indication: DYSPNEA Technique: One view of the chest Comparison: 03/09/2017 Findings: The heart is enlarged. Lungs and pleural spaces are clear. No significant change Impression: No acute process. No significant interim change management director one day
--- NOTE | 2017-03-10 13:52 | Cardiology Progress Note ---
Assessment/Plan Assessment/Plan 1. Chronic obstructive pulmonary disease exacerbation. 2. Systolic congestive heart failure. 3. Atrial fibrillation, permanent. 4. Tachycardia. 5. Diabetes mellitus. 6. Obesity. 7. hypokalemia 8. Hyperthyroidism on po Cardizem 60 mg qid still mildly tachy diureitc spot dosing kavon i if bp ok d/w rn k supplement tfts pending Subjective Cardiovascular: Reports: palpitations, Denies: chest pain, lightheadedness Respiratory: Reports: shortness of breath Gastrointestinal/Abdominal: Denies: abdominal pain Genitourinary: Denies: burning Objective Last 24 Hour Vital Signs Date Time Temp Pulse Resp B/P Pulse Ox O2 Delivery O2 Flow Rate FiO2 03/10/17 13:27 109 23 100 Nasal Cannula 2.0 28 03/10/17 13:20 106 22 100 Nasal Cannula 2.0 28 03/10/17 13:00 106 19 124/70 98 Nasal Cannula 2.0 03/10/17 12:00 2.0 03/10/17 12:00 98.4 120 25 129/76 98 Nasal Cannula 2.0 03/10/17 12:00 111 03/10/17 11:53 112 118/58 03/10/17 11:00 114 30 118/58 97 Nasal Cannula 2.0 03/10/17 10:00 110 24 116/73 97 Nasal Cannula 2.0 03/10/17 09:35 89 21 100 Nasal Cannula 2.0 28 03/10/17 09:26 95 20 100 Nasal Cannula 2.0 28 03/10/17 09:18 104 03/10/17 09:00 102 28 133/61 98 Nasal Cannula 2.0 03/10/17 08:00 2.0 03/10/17 08:00 84 03/10/17 08:00 98.2 95 26 150/76 98 Nasal Cannula 2.0 03/10/17 07:49 98 Nasal Cannula 3.0 32 03/10/17 07:49 Nasal Cannula 3.0 32 03/10/17 07:00 88 21 136/72 98 Bi-pap 30 03/10/17 06:00 88 21 136/69 99 Bi-pap 30 03/10/17 05:43 92 148/72 03/10/17 05:00 92 21 148/72 98 Bi-pap 30 03/10/17 04:51 87 20 100 Bi-pap 03/10/17 04:51 90 20 100 Bi-pap 03/10/17 04:49 87 20 100 03/10/17 04:00 30 03/10/17 04:00 84 03/10/17 04:00 98.2 86 22 135/89 99 Bi-pap 30 03/10/17 03:30 88 20 99 Facial 30 03/10/17 03:00 88 20 134/87 98 Bi-pap 30 03/10/17 02:00 86 23 131/68 96 Bi-pap 30 03/10/17 01:00 79 23 134/64 99 Bi-pap 30 03/10/17 00:56 70 20 100 Facial 30 03/10/17 00:00 98.0 81 22 144/82 99 Bi-pap 30 03/10/17 00:00 30 03/10/17 00:00 81 03/09/17 23:49 68 125/64 03/09/17 23:30 73 20 99 Facial 30 03/09/17 23:00 68 27 125/64 99 Bi-pap 40 03/09/17 22:00 74 29 122/63 98 Bi-pap 40 03/09/17 21:30 96 27 122/63 98 Bi-pap 40 03/09/17 21:30 84 20 97 Facial 30 03/09/17 21:00 86 26 122/66 98 Bi-pap 40 03/09/17 20:40 87 132/74 03/09/17 20:30 84 26 122/66 99 Bi-pap 40 03/09/17 20:00 98.0 87 25 122/63 100 Bi-pap 40 03/09/17 20:00 87 03/09/17 19:30 87 24 132/74 100 Bi-pap 40 03/09/17 19:22 101 157/75 03/09/17 19:00 90 23 120/65 99 Bi-pap 40 03/09/17 19:00 88 21 99 Facial 30 03/09/17 18:30 101 24 157/75 99 Nasal Cannula 3.0 03/09/17 18:00 115 24 166/90 99 Nasal Cannula 3.0 03/09/17 17:30 105 26 164/94 99 Nasal Cannula 3.0 03/09/17 17:00 96 26 153/84 99 Bi-pap 40 03/09/17 16:30 98 26 117/57 100 Bi-pap 40 03/09/17 16:00 80 03/09/17 16:00 98.1 73 28 113/65 99 Bi-pap 40 03/09/17 16:00 30 03/09/17 15:30 81 26 99/57 99 Bi-pap 40 03/09/17 15:05 77 25 99 Facial 30 03/09/17 15:00 81 26 113/61 99 Bi-pap 40 03/09/17 14:30 88 26 120/72 98 Bi-pap 40 03/09/17 14:00 97 28 156/85 99 Bi-pap 40 General Appearance: no apparent distress, alert, patient on isolation Neck: supple Cardiovascular: tachycardia, irregularly irregular Respiratory/Chest: crackles/rales Abdomen: normal bowel sounds, non tender, soft Extremities: no swelling Intake and Output 03/09/17 03/10/17 19:00 07:00 Intake Total 975.5 ml 610.5 ml Output Total 2589 ml 3100 ml Balance -1613.5 ml -2489.5 ml Intake Oral 500 ml 410 ml IV Total 425.5 ml 200.5 ml Other 50 ml Output Urine Total 2589 ml 3100 ml # Bowel Movements 4 Laboratory Tests Test 03/10/17 03:50 White Blood Count 9.5 K/UL (4.8-10.8) Red Blood Count 4.02 M/UL (4.20-5.40) L Hemoglobin 12.4 G/DL (12.0-16.0) Hematocrit 37.9 % (37.0-47.0) Mean Corpuscular Volume 94 FL (80-99) Mean Corpuscular Hemoglobin 30.9 PG (27.0-31.0) Mean Corpuscular Hemoglobin Concent 32.7 G/DL (32.0-36.0) Red Cell Distribution Width 13.9 % (11.6-14.8) Platelet Count 277 K/UL (150-450) Mean Platelet Volume 7.8 FL (6.5-10.1) Neutrophils (%) (Auto) % (45.0-75.0) Lymphocytes (%) (Auto) % (20.0-45.0) Monocytes (%) (Auto) % (1.0-10.0) Eosinophils (%) (Auto) % (0.0-3.0) Basophils (%) (Auto) % (0.0-2.0) Prothrombin Time 29.2 SEC (9.30-11.50) H Prothromb Time International Ratio 2.8 (0.9-1.1) H Sodium Level 142 mEQ/L (135-145) Potassium Level 3.4 mEQ/L (3.4-4.9) Chloride Level 95 mEQ/L (98-107) L Carbon Dioxide Level 34 mEQ/L (20-30) H Anion Gap 13 (5-15) Blood Urea Nitrogen 20 mg/dL (7-23) Creatinine 0.7 mg/dL (0.5-0.9) Estimat Glomerular Filtration Rate mL/min (>60) Glucose Level 317 mg/dL (74-106) #H Calcium Level 8.3 mg/dL (8.6-10.2) L Total Bilirubin 0.5 mg/dL (0.0-1.2) Aspartate Amino Transf (AST/SGOT) 44 U/L (5-40) H Alanine Aminotransferase (ALT/SGPT) 75 U/L (3-33) H Alkaline Phosphatase 102 U/L (35-104) Pro-B-Type Natriuretic Peptide 4384 pg/mL (0-450) H Total Protein 6.8 g/dL (6.6-8.7) Albumin 3.7 g/dL (3.5-5.2) Globulin 3.1 g/dL Albumin/Globulin Ratio 1.1 (1.0-2.7) Free Thyroxine 1.81 ng/dL (0.86-1.85) Free Triiodothyronine Pending Triiodothyronine (T3) Uptake Pending YOON ROBLEDO Mar 10, 2017 13:52
[2017-03-10] MEDS ORDERED: Tubing IV Secondary IV ONE (15:17)
[2017-03-10] MEDS ORDERED: NS 275ml ONE ×2 (15:17→15:22)
[2017-03-10] MEDS ORDERED: Warfarin Sodium 2mg ORAL ONE (17:00)
[2017-03-10] MEDS ORDERED: Simethicone 80mg tab ORAL PRN (18:00)
[2017-03-10] MEDS ORDERED: LORazepam Inj 2mg/ml 1ml IV PRN (18:00)
[2017-03-10] MEDS ORDERED: Miralax 17gm pkt ORAL PRN (18:00)
[2017-03-10] MEDS ORDERED: Nitroglycerin Subl 0.4mg tab (Bottle Of 25) SL PRN (18:00)
[2017-03-10] MEDS ORDERED: Promethazine/Codeine 5ml UD ORAL PRN (18:00)
[2017-03-10] MEDS ORDERED: Enalaprilat 2.5mg/2ml Inj IV PRN (18:00)
[2017-03-11] VITALS: BP 134/68
[2017-03-11] MEDS: DuoNeb 0.5-3(2.5)mg/3ml neb HHN PRN ×2 (00:19→11:44)
[2017-03-11] MEDS: Piperacillin/Tazobactam 3.375 GM in D5W 110 ML IVPB SCH ×3 (02:28→18:05)
[2017-03-11 04:00] VITALS: BP 136/66
[2017-03-11] MEDS: Norco 5mg/325mg tab ORAL PRN ×3 (05:03→23:08)
[2017-03-11] MEDS: NovoLOG Insulin Flexpen SUBQ SCH ×4 (06:07→21:08)
[2017-03-11 08:00] VITALS: BP 131/95
[2017-03-11] MEDS: Digoxin 0.125mg tab ORAL SCH (08:37)
[2017-03-11] MEDS: Solu-MEDROL 125mg Inj IVP SCH (08:40)
[2017-03-11 08:55] LABS: MEAN CORPUSCULAR HEMOGLOBIN 30.4 PG (27.0-31.0); MEAN CORPUSCULAR HGB CONC 31.9 G/DL (32.0-36.0); MEAN CORPUSCULAR VOLUME 95 FL (80-99); MEAN PLATELET VOLUME 7.9 FL (6.5-10.1); PLATELET COUNT 333 K/UL (150-450); RED BLOOD COUNT 4.61 M/UL (4.20-5.40); RED CELL DISTRIBUTION WIDTH 14.4 % (11.6-14.8); WHITE BLOOD COUNT 14.2 K/UL (4.8-10.8)
[2017-03-11 09:12] LABS: ALANINE AMINOTRANSFERASE 75 U/L (3-33); ALBUMIN/GLOBULIN RATIO 1.3 (1.0-2.7); ANION GAP 14 (5-15); ASPARTATE AMINO TRANSFERASE 27 U/L (5-40); CALCIUM 10.1 mg/dL (8.6-10.2); CARBON DIOXIDE 35 mEQ/L (20-30); CHLORIDE 89 mEQ/L (98-107); CREATININE 0.8 mg/dL (0.5-0.9); HEMOLYSIS 2; PHOSPHORUS 2.3 mg/dL (2.5-4.8); POTASSIUM 3.4 mEQ/L (3.4-4.9); SODIUM 138 mEQ/L (135-145); TOTAL PROTEIN 6.8 g/dL (6.6-8.7)
[2017-03-11 09:18] LABS: INR 2.2 (0.9-1.1); PROTHROMBIN TIME 22.7 SEC (9.30-11.50)
[2017-03-11 10:13] LABS: ABG ALLEN TEST POSITIVE; ABG BASE EXCESS 13.1; ABG PCO2 52.5 mmHg (35.0-45.0)
[2017-03-11 10:26] LABS: BAND NEUTROPHILS % (MANUAL) 0 % (0-8); BASOPHILS % (MANUAL) 0 % (0-2); EOSINOPHILS % (MANUAL) 0 % (0-3); HYPOCHROMASIA 1+; LYMPHOCYTES % (MANUAL) 8 % (20-45); MICROCYTES 1+; NEUTROPHILS % (MANUAL) 89 % (45-75); PLATELET ESTIMATE ADEQUATE; PLATELET MORPHOLOGY NORMAL; TOTAL CELLS COUNTED 100
[2017-03-11 12:00] VITALS: BP 127/71
--- NOTE | 2017-03-11 12:14 | Diagnostic Imaging Report ---
Indication: DYSPNEA Technique: One view of the chest Comparison: 03/10/2017 Findings: Lungs and pleural spaces are clear. Heart is enlarged. There is no significant change Impression: Cardiomegaly. No acute process
--- NOTE | 2017-03-11 12:50 | Pulmonology Progress Note ---
Assessment/Plan Problems: (1) Acute respiratory failure (2) Atrial fibrillation (3) Diabetes mellitus (4) Cardiomyopathy (5) COPD (chronic obstructive pulmonary disease) Assessment/Plan needs better heart rate control dc steroids Add Brovana, long acting b2 agonists. dc when ok with cardio Subjective Interval Events: still coughing Allergies: Coded Allergies: No Known Allergies (Unverified , 03/06/17) Objective Last 24 Hour Vital Signs Date Time Temp Pulse Resp B/P Pulse Ox O2 Delivery O2 Flow Rate FiO2 03/11/17 12:00 97.5 106 19 127/71 96 Nasal Cannula 2.0 03/11/17 11:39 114 127/71 03/11/17 10:20 99 20 100 Nasal Cannula 2.0 28 03/11/17 10:15 99 Nasal Cannula 2.0 28 03/11/17 10:15 Nasal Cannula 2.0 28 03/11/17 10:15 98 16 Nasal Cannula 2.0 28 03/11/17 10:12 98 20 98 Nasal Cannula 2.0 28 03/11/17 08:37 113 03/11/17 08:00 97.3 121 20 131/95 94 Room Air 03/11/17 06:09 113 147/90 03/11/17 04:00 2.0 03/11/17 04:00 97.8 96 19 136/66 97 Nasal Cannula 2.0 03/11/17 04:00 88 03/11/17 00:20 104 20 100 Nasal Cannula 2.0 28 03/11/17 00:19 102 20 98 Nasal Cannula 2.0 28 03/11/17 00:13 98 138/69 03/11/17 00:00 97.9 96 19 134/68 96 Nasal Cannula 2.0 03/11/17 00:00 93 03/11/17 00:00 2.0 03/10/17 20:00 98.2 71 19 144/80 96 Nasal Cannula 2.0 03/10/17 20:00 123 03/10/17 20:00 2.0 03/10/17 19:00 98 Nasal Cannula 2.0 03/10/17 19:00 Nasal Cannula 2.0 03/10/17 18:18 150 03/10/17 17:00 100 28 128/69 98 Nasal Cannula 2.0 03/10/17 16:00 98.2 101 27 151/67 99 Nasal Cannula 2.0 03/10/17 16:00 2.0 03/10/17 15:51 107 03/10/17 15:00 109 32 110/55 98 Nasal Cannula 2.0 03/10/17 14:00 126 28 143/73 99 Nasal Cannula 2.0 03/10/17 13:27 109 23 100 Nasal Cannula 2.0 28 03/10/17 13:20 106 22 100 Nasal Cannula 2.0 28 03/10/17 13:00 106 19 124/70 98 Nasal Cannula 2.0 Intake and Output 03/10/17 03/11/17 19:00 07:00 Intake Total 1470.0 ml 580 ml Output Total 1265 ml Balance 205.0 ml 580 ml Intake Oral 1360 ml 360 ml IV Total 110.0 ml 220 ml Output Urine Total 1265 ml # Voids 4 # Bowel Movements 2 2 General Appearance: WD/WN Respiratory/Chest: crackles/rales Breasts: no masses Cardiovascular: normal peripheral pulses, normal rate Abdomen: normal bowel sounds, soft, non tender Genitourinary: normal external genitalia Extremities: no cyanosis Skin: no rash Laboratory Tests 03/11/17 08:30: White Blood Count 14.2H, Red Blood Count 4.61, Hemoglobin 14.0, Hematocrit 43.9 , Mean Corpuscular Volume 95, Mean Corpuscular Hemoglobin 30.4, Mean Corpuscular Hemoglobin Concent 31.9L, Red Cell Distribution Width 14.4, Platelet Count 333, Mean Platelet Volume 7.9, Neutrophils (%) (Auto) , Lymphocytes (%) (Auto) , Monocytes (%) (Auto) , Eosinophils (%) (Auto) , Basophils (%) (Auto) , Differential Total Cells Counted 100, Neutrophils % ( Manual) 89H, Lymphocytes % (Manual) 8L, Monocytes % (Manual) 3, Eosinophils % ( Manual) 0, Basophils % (Manual) 0, Band Neutrophils 0, Platelet Estimate Adequate, Platelet Morphology Normal, Hypochromasia 1+, Microcytosis 1+, Prothrombin Time 22.7H, Prothromb Time International Ratio 2.2H, Sodium Level 138, Potassium Level 3.4, Chloride Level 89L, Carbon Dioxide Level 35H, Anion Gap 14, Blood Urea Nitrogen 19, Creatinine 0.8, Estimat Glomerular Filtration Rate , Glucose Level 416#H, Calcium Level 10.1#, Phosphorus Level 2.3L, Magnesium Level 2.0, Total Bilirubin 0.8, Aspartate Amino Transf (AST/SGOT) 27, Alanine Aminotransferase (ALT/SGPT) 75H, Alkaline Phosphatase 100, Total Protein 6.8, Albumin 3.9, Globulin 2.9, Albumin/Globulin Ratio 1.3 03/11/17 10:00: Arterial Blood pH 7.480H, Arterial Blood Partial Pressure CO2 52.5H, Arterial Blood Partial Pressure O2 100.7H, Arterial Blood HCO3 38.8H, Arterial Blood Oxygen Saturation 97.7, Arterial Blood Base Excess 13.1, Anthony Test Positive Current Medications Medications (Trade) Dose Ordered Sig/Mo Route PRN Reason Start Time Stop Time Status Last Admin Dose Admin Acetaminophen (Tylenol) 650 mg Q4H PRN ORAL T>100.5 03/10/17 18:00 04/09/17 17:59 Acetaminophen/ Hydrocodone Bitart ([place] 5/325) 1 tab Q4H PRN ORAL For Pain 4-10 03/10/17 18:00 03/17/17 17:59 03/11/17 12:22 Albuterol/ Ipratropium (DuoNeb 0.5-3(2.5)mg/3ml) 3 ml Q4H PRN HHN Shortness of Breath 03/10/17 18:00 03/15/17 17:59 03/11/17 11:44 Atorvastatin Calcium (Lipitor) 10 mg BEDTIME ORAL 03/10/17 21:00 04/09/17 20:59 03/10/17 20:52 Baclofen (Lioresal) 10 mg THREE TIMES A DAY ORAL 03/10/17 18:30 04/09/17 18:29 03/11/17 12:21 Dextrose (Dextrose 50%) STAT PRN IV Hypoglycemia 03/10/17 18:00 04/09/17 17:59 Digoxin (Lanoxin) 0.125 mg DAILY ORAL 03/11/17 09:00 04/10/17 08:59 03/11/17 08:37 Diltiazem HCl (Cardizem) 60 mg EVERY 6 HOURS ORAL 03/10/17 18:30 04/09/17 18:29 03/11/17 11:39 Enalaprilat (Vasotec) 2.5 mg Q6H PRN IV SBP > 160 03/10/17 18:00 04/09/17 17:59 Furosemide (Lasix) 40 mg EVERY 12 HOURS IV 03/10/17 21:00 04/09/17 20:59 03/11/17 08:38 Gabapentin (Neurontin) 300 mg THREE TIMES A DAY ORAL 03/10/17 18:30 04/09/17 18:29 03/11/17 12:21 Insulin Aspart (NovoLOG) AC+HS SUBQ 03/10/17 21:00 04/09/17 20:59 03/11/17 12:26 Lorazepam (Ativan 2mg/ml 1ml) 0.5 mg Q4H PRN IV For Anxiety 03/10/17 18:00 03/17/17 17:59 Nitroglycerin (Ntg) 0.4 mg Q5M PRN SL Prn Chest Pain 03/10/17 18:00 04/09/17 17:59 Ondansetron HCl (Zofran) 4 mg Q6H PRN IVP Nausea & Vomiting 03/10/17 18:00 04/09/17 17:59 Pantoprazole (Protonix) 40 mg DAILY ORAL 03/11/17 09:00 04/10/17 08:59 03/11/17 08:40 Piperacillin Sod/ Tazobactam Sod/ Dextrose (Zosyn/D5W) 110 ml @ 27.5 mls/hr Q8HR@0200,1000,1800 IVPB 03/10/17 18:00 03/17/17 17:59 03/11/17 10:16 Polyethylene Glycol (Miralax) 17 gm DAILYPRN PRN ORAL Constipation 03/10/17 18:00 04/09/17 17:59 Promethazine HCl/ Codeine (Phenergan with Codeine) 5 ml Q4H PRN ORAL For Cough 03/10/17 18:00 04/09/17 17:59 Simethicone (Mylicon) 80 mg Q8H PRN ORAL GAS PAIN 03/10/17 18:00 04/09/17 17:59 Temazepam (Restoril) 15 mg HSPRN PRN ORAL Insomnia 03/10/17 21:00 03/17/17 20:59 Warfarin Sodium (Coumadin per pharmacy) 1 ea DAILY PRN MISC PER RX PROTOCOL 03/10/17 18:00 04/09/17 17:59 Warfarin Sodium (Coumadin) 4 mg COUMADIN PO 03/11/17 17:00 03/11/17 17:01 THANIA ACKERMAN Mar 11, 2017 12:50
--- NOTE | 2017-03-11 15:47 | Cardiology Report ---
APPROVED REPORT EKG Measurement Heart [id number] Atrial fibrillation with premature ventricular or aberrantly conducted complexes Prolonged QT Abnormal ECG
[2017-03-11] MEDS ORDERED: Warfarin Sodium 4mg PO SCH (17:00)
--- NOTE | 2017-03-11 18:28 | Cardiology Progress Note ---
Assessment/Plan Assessment/Plan 1. Chronic obstructive pulmonary disease exacerbation. 2. Systolic congestive heart failure. 3. Atrial fibrillation, permanent. 4. Tachycardia. 5. Diabetes mellitus. 6. Obesity. 7. hypokalemia 8. Hyperthyroidism on po Cardizem 60 mg qid still at tiem tachy desptie dig (is on ditl cd 240 a day per her records) diuretic kavon i if bp ok d/w rn k supplement tfts some are ok while tsh low dc albuterol uses Atrovent only cxr noted tele at tiem shwo sig elevated heart rate will add occasional iv dilt for nwo dig level in am best for future is to consider avn ablation with ppi to avoid meds that my make hr chf worse still nto clear if hyperthyroidism is excluded not yet ready for dc d/w dr nix d/w photography intern reviewed Subjective Cardiovascular: Denies: lightheadedness, palpitations Respiratory: Denies: shortness of breath Gastrointestinal/Abdominal: Denies: abdominal pain Genitourinary: Denies: burning Objective Last 24 Hour Vital Signs Date Time Temp Pulse Resp B/P Pulse Ox O2 Delivery O2 Flow Rate FiO2 03/11/17 18:01 113 152/111 03/11/17 16:00 2.0 03/11/17 16:00 96 03/11/17 16:00 97.2 101 20 96 Nasal Cannula 2.0 03/11/17 12:00 125 03/11/17 12:00 97.5 106 19 127/71 96 Nasal Cannula 2.0 03/11/17 12:00 2.0 03/11/17 11:39 114 127/71 03/11/17 10:20 99 20 100 Nasal Cannula 2.0 28 03/11/17 10:15 99 Nasal Cannula 2.0 28 03/11/17 10:15 Nasal Cannula 2.0 28 03/11/17 10:15 98 16 Nasal Cannula 2.0 28 03/11/17 10:12 98 20 98 Nasal Cannula 2.0 28 03/11/17 08:37 113 03/11/17 08:00 2.0 03/11/17 08:00 97.3 121 20 131/95 94 Room Air 03/11/17 08:00 140 03/11/17 06:09 113 147/90 03/11/17 04:00 2.0 03/11/17 04:00 97.8 96 19 136/66 97 Nasal Cannula 2.0 03/11/17 04:00 88 03/11/17 00:20 104 20 100 Nasal Cannula 2.0 28 03/11/17 00:19 102 20 98 Nasal Cannula 2.0 28 03/11/17 00:13 98 138/69 03/11/17 00:00 97.9 96 19 134/68 96 Nasal Cannula 2.0 03/11/17 00:00 93 03/11/17 00:00 2.0 03/10/17 20:00 98.2 71 19 144/80 96 Nasal Cannula 2.0 03/10/17 20:00 123 03/10/17 20:00 2.0 03/10/17 19:00 98 Nasal Cannula 2.0 03/10/17 19:00 Nasal Cannula 2.0 General Appearance: no apparent distress, alert Neck: supple Cardiovascular: tachycardia, irregularly irregular Respiratory/Chest: crackles/rales Abdomen: normal bowel sounds, non tender, soft Extremities: no swelling Intake and Output 03/10/17 03/11/17 19:00 07:00 Intake Total 1470.0 ml 580 ml Output Total 1265 ml Balance 205.0 ml 580 ml Intake Oral 1360 ml 360 ml IV Total 110.0 ml 220 ml Output Urine Total 1265 ml # Voids 4 # Bowel Movements 2 2 Laboratory Tests Test 03/11/17 08:30 03/11/17 10:00 White Blood Count 14.2 K/UL (4.8-10.8) H Red Blood Count 4.61 M/UL (4.20-5.40) Hemoglobin 14.0 G/DL (12.0-16.0) Hematocrit 43.9 % (37.0-47.0) Mean Corpuscular Volume 95 FL (80-99) Mean Corpuscular Hemoglobin 30.4 PG (27.0-31.0) Mean Corpuscular Hemoglobin Concent 31.9 G/DL (32.0-36.0) L Red Cell Distribution Width 14.4 % (11.6-14.8) Platelet Count 333 K/UL (150-450) Mean Platelet Volume 7.9 FL (6.5-10.1) Neutrophils (%) (Auto) % (45.0-75.0) Lymphocytes (%) (Auto) % (20.0-45.0) Monocytes (%) (Auto) % (1.0-10.0) Eosinophils (%) (Auto) % (0.0-3.0) Basophils (%) (Auto) % (0.0-2.0) Differential Total Cells Counted 100 Neutrophils % (Manual) 89 % (45-75) H Lymphocytes % (Manual) 8 % (20-45) L Monocytes % (Manual) 3 % (1-10) Eosinophils % (Manual) 0 % (0-3) Basophils % (Manual) 0 % (0-2) Band Neutrophils 0 % (0-8) Platelet Estimate Adequate Platelet Morphology Normal Hypochromasia 1+ Microcytosis 1+ Prothrombin Time 22.7 SEC (9.30-11.50) H Prothromb Time International Ratio 2.2 (0.9-1.1) H Sodium Level 138 mEQ/L (135-145) Potassium Level 3.4 mEQ/L (3.4-4.9) Chloride Level 89 mEQ/L (98-107) L Carbon Dioxide Level 35 mEQ/L (20-30) H Anion Gap 14 (5-15) Blood Urea Nitrogen 19 mg/dL (7-23) Creatinine 0.8 mg/dL (0.5-0.9) Estimat Glomerular Filtration Rate mL/min (>60) Glucose Level 416 mg/dL (74-106) #H Calcium Level 10.1 mg/dL (8.6-10.2) # Phosphorus Level 2.3 mg/dL (2.5-4.8) L Magnesium Level 2.0 mg/dL (1.7-2.5) Total Bilirubin 0.8 mg/dL (0.0-1.2) Aspartate Amino Transf (AST/SGOT) 27 U/L (5-40) Alanine Aminotransferase (ALT/SGPT) 75 U/L (3-33) H Alkaline Phosphatase 100 U/L (35-104) Total Protein 6.8 g/dL (6.6-8.7) Albumin 3.9 g/dL (3.5-5.2) Globulin 2.9 g/dL Albumin/Globulin Ratio 1.3 (1.0-2.7) Arterial Blood pH 7.480 (7.350-7.450) Arterial Blood Partial Pressure CO2 52.5 mmHg (35.0-45.0) H Arterial Blood Partial Pressure O2 100.7 mmHg (75.0-100.0) H Arterial Blood HCO3 38.8 mmol/L (22.0-26.0) H Arterial Blood Oxygen Saturation 97.7 % (92.0-98.0) Arterial Blood Base Excess 13.1 Anthony Test Positive YOON ROBLEDO Mar 11, 2017 18:28
[2017-03-11] MEDS ORDERED: Diltiazem 25mg/5ml IV ONE (18:45)
[2017-03-11] MEDS: Ipratropium 0.02% Inh Soln 2.5ml UD HHN SCH (19:57)
[2017-03-11 20:00] VITALS: BP 146/86
[2017-03-12] VITALS: BP 132/99
[2017-03-12] MEDS: [UNRECOGNIZED DRUG - OTHER] INH SCH ×3 (00:02→21:03)
[2017-03-12] MEDS: Ipratropium 0.02% Inh Soln 2.5ml UD HHN SCH ×4 (01:26→19:40)
[2017-03-12 02:16] LABS: FREE TRIIODOTHYRONINE 2.7 pg/mL (2.0-4.4)
[2017-03-12] MEDS: Piperacillin/Tazobactam 3.375 GM in D5W 110 ML IVPB SCH ×3 (02:32→17:49)
[2017-03-12 04:00] VITALS: BP 136/89
[2017-03-12] MEDS: NovoLOG Insulin Flexpen SUBQ SCH ×4 (06:23→21:42)
[2017-03-12 08:09] VITALS: BP 144/81
[2017-03-12 08:23] LABS: INR 2.2 (0.9-1.1); PROTHROMBIN TIME 22.8 SEC (9.30-11.50)
[2017-03-12] MEDS: Digoxin 0.125mg tab ORAL SCH (08:57)
[2017-03-12 11:43] VITALS: BP 136/67
[2017-03-12] MEDS ORDERED: Digoxin 0.5mg/2ml Inj IVP ONE (13:30)
--- NOTE | 2017-03-12 15:18 | Pulmonology Progress Note ---
Assessment/Plan Problems: (1) Acute respiratory failure (2) Atrial fibrillation (3) Diabetes mellitus (4) Cardiomyopathy (5) COPD (chronic obstructive pulmonary disease) Assessment/Plan needs better heart rate control dc steroids Add Brovana, long acting b2 agonists. dc when ok with cardio might go to [facility] for ablation and pace maker placement Subjective ROS Limited/Unobtainable: No Interval Events: still episodes of tachy of 140 Constitutional: Reports: no symptoms HEENT: Repors: no symptoms Respiratory: Reports: no symptoms Allergies: Coded Allergies: No Known Allergies (Unverified , 03/06/17) Objective Last 24 Hour Vital Signs Date Time Temp Pulse Resp B/P Pulse Ox O2 Delivery O2 Flow Rate FiO2 03/12/17 13:45 103 03/12/17 13:16 114 20 100 Nasal Cannula 2.0 28 03/12/17 13:06 103 20 94 Nasal Cannula 2.0 28 03/12/17 12:40 104 136/67 03/12/17 12:00 118 03/12/17 12:00 2.0 03/12/17 11:43 98.2 104 18 136/67 98 03/12/17 09:00 2.0 03/12/17 08:57 102 03/12/17 08:34 102 20 96 Nasal Cannula 2.0 03/12/17 08:09 97.7 105 18 144/81 97 Nasal Cannula 2.0 03/12/17 08:00 140 03/12/17 07:50 Nasal Cannula 2.0 03/12/17 07:49 Nasal Cannula 2.0 03/12/17 07:48 102 20 96 Nasal Cannula 2.0 03/12/17 07:47 96 Nasal Cannula 2.0 03/12/17 06:22 98 136/89 03/12/17 04:00 2.0 03/12/17 04:00 97.5 96 18 136/89 Nasal Cannula 2.0 03/12/17 03:53 93 03/12/17 01:33 96 18 100 Nasal Cannula 2.0 28 03/12/17 01:28 95 18 98 Nasal Cannula 2.0 28 03/12/17 00:49 2.0 03/12/17 00:20 99 144/91 03/12/17 00:15 95 16 98 Nasal Cannula 2.0 03/12/17 00:07 96 16 98 Nasal Cannula 2.0 28 03/12/17 00:00 97.3 95 16 132/99 100 Nasal Cannula 2.0 28 03/11/17 23:55 100 03/11/17 20:04 99 18 100 Nasal Cannula 2.0 28 03/11/17 20:00 Nasal Cannula 2.0 28 03/11/17 20:00 99 Nasal Cannula 2.0 28 03/11/17 20:00 97.3 106 18 146/86 96 Nasal Cannula 2.0 28 03/11/17 20:00 2.0 03/11/17 19:58 98 18 98 Nasal Cannula 2.0 28 03/11/17 19:30 95 03/11/17 18:47 144 161/91 03/11/17 18:01 113 152/111 03/11/17 16:00 2.0 03/11/17 16:00 96 03/11/17 16:00 97.2 101 20 96 Nasal Cannula 2.0 Intake and Output 03/11/17 03/12/17 19:00 07:00 Intake Total 860.0 ml Balance 860.0 ml Intake Oral 750 ml IV Total 110.0 ml # Voids 2 # Bowel Movements 1 General Appearance: WD/WN HEENT: normocephalic, atraumatic Respiratory/Chest: chest wall non-tender, lungs clear Breasts: no masses Cardiovascular: normal peripheral pulses Abdomen: normal bowel sounds, soft, non tender Genitourinary: normal external genitalia Extremities: no cyanosis Skin: no rash Neurologic/Psychiatric: plant operator II-XII grossly normal, abnormal gait Lymphatic: no neck adenopathy Laboratory Tests 03/12/17 05:50: Prothrombin Time 22.8H, Prothromb Time International Ratio 2.2H Current Medications Medications (Trade) Dose Ordered Sig/Mo Route PRN Reason Start Time Stop Time Status Last Admin Dose Admin Acetaminophen (Tylenol) 650 mg Q4H PRN ORAL T>100.5 03/10/17 18:00 04/09/17 17:59 Acetaminophen/ Hydrocodone Bitart ([place] 5/325) 1 tab Q4H PRN ORAL For Pain 4-10 03/10/17 18:00 03/17/17 17:59 03/11/17 23:08 Atorvastatin Calcium (Lipitor) 10 mg BEDTIME ORAL 03/10/17 21:00 04/09/17 20:59 03/11/17 21:06 Baclofen (Lioresal) 10 mg THREE TIMES A DAY ORAL 03/10/17 18:30 04/09/17 18:29 03/12/17 12:40 Dextrose (Dextrose 50%) STAT PRN IV Hypoglycemia 03/10/17 18:00 04/09/17 17:59 Digoxin (Lanoxin) 0.125 mg DAILY ORAL 03/11/17 09:00 04/10/17 08:59 03/12/17 08:57 Diltiazem HCl (Cardizem) 60 mg EVERY 6 HOURS ORAL 03/10/17 18:30 04/09/17 18:29 03/12/17 12:40 Enalaprilat (Vasotec) 2.5 mg Q6H PRN IV SBP > 160 03/10/17 18:00 04/09/17 17:59 Furosemide (Lasix) 40 mg EVERY 12 HOURS IV 03/10/17 21:00 04/09/17 20:59 03/12/17 08:57 Gabapentin (Neurontin) 300 mg THREE TIMES A DAY ORAL 03/10/17 18:30 04/09/17 18:29 03/12/17 12:40 Insulin Aspart (NovoLOG) AC+HS SUBQ 03/10/17 21:00 04/09/17 20:59 03/12/17 12:33 Ipratropium [place] (Atrovent) 500 mcg Q6HRT HHN 03/11/17 19:00 03/16/17 18:59 03/12/17 13:06 Lorazepam (Ativan 2mg/ml 1ml) 0.5 mg Q4H PRN IV For Anxiety 03/10/17 18:00 03/17/17 17:59 Nitroglycerin (Ntg) 0.4 mg Q5M PRN SL Prn Chest Pain 03/10/17 18:00 04/09/17 17:59 Ondansetron HCl (Zofran) 4 mg Q6H PRN IVP Nausea & Vomiting 03/10/17 18:00 04/09/17 17:59 Pantoprazole (Protonix) 40 mg DAILY ORAL 03/11/17 09:00 04/10/17 08:59 03/12/17 08:57 Piperacillin Sod/ Tazobactam Sod/ Dextrose (Zosyn/D5W) 110 ml @ 27.5 mls/hr Q8HR@0200,1000,1800 IVPB 03/10/17 18:00 03/17/17 17:59 03/12/17 10:21 Polyethylene Glycol (Miralax) 17 gm DAILYPRN PRN ORAL Constipation 03/10/17 18:00 04/09/17 17:59 Promethazine HCl/ Codeine (Phenergan with Codeine) 5 ml Q4H PRN ORAL For Cough 03/10/17 18:00 04/09/17 17:59 Simethicone (Mylicon) 80 mg Q8H PRN ORAL GAS PAIN 03/10/17 18:00 04/09/17 17:59 Temazepam (Restoril) 15 mg HSPRN PRN ORAL Insomnia 03/10/17 21:00 03/17/17 20:59 Warfarin Sodium (Coumadin per pharmacy) 1 ea DAILY PRN MISC PER RX PROTOCOL 03/10/17 18:00 04/09/17 17:59 Warfarin Sodium (Coumadin) 4 mg COUMADIN ONCE PO 03/12/17 17:00 03/12/17 17:01 THANIA ACKERMAN Mar 12, 2017 15:18
[2017-03-12 15:56] VITALS: BP 132/66
[2017-03-12] MEDS ORDERED: Warfarin Sodium 4mg PO ONE (17:00)
--- NOTE | 2017-03-12 18:15 | Cardiology Progress Note ---
Assessment/Plan Assessment/Plan 1. Chronic obstructive pulmonary disease exacerbation. 2. Systolic congestive heart failure. 3. Atrial fibrillation, permanent. 4. Tachycardia. 5. Diabetes mellitus. 6. Obesity. 7. hypokalemia 8. Hyperthyroidism excluded on po [facility] (is on ditl cd 240 a day per her records) diuretic kavon i if bp ok d/w rn k supplement tfts some are ok while tsh low off albuterol use Atrovent only cxr noted tele at [facility] shwo sig elevated heart rate extra dig added dig level in am d/w grad dtr seem pt has had 2 attempt at cardioversion which have failed shortly after each attempt has had ? cath by dr campbell was todl no blockages ef was nto low at [facility] in 12/2016 per robert dtr ef now quite lwo in [facility] 30% hr is qutie fast at time has copd but apparently has been on metoprolol before when her lv function was better i am concerned about possible tachy induced cm in my opion best for future is to consider avn ablation with ppi / icd to avoid meds that my make hr chf worse and to help with hr control unlikely that antiarrhythmic would be of benefit in light of perm afib, cardioversion has apprently not worked on at least 2 prior occasions still nto clear if hyperthyroidism is excluded not yet ready for dc tele reviewed i have asked ep dr edmonds to see will administer a very small dose of metoprolol po one time tomorrow am during the day time discussed these option with pt adn grand dtr they will wait to discuss with ep and or dr cagle i have left several messages for pt meeting/event planner dr cagle but he has nto called me back will await final decision [facility] transfer [place] called name placed on [facility] list. Subjective Cardiovascular: Denies: chest pain, lightheadedness, palpitations Respiratory: Reports: shortness of breath Gastrointestinal/Abdominal: Denies: abdominal pain Genitourinary: Denies: burning Objective Last 24 Hour Vital Signs Date Time Temp Pulse Resp B/P Pulse Ox O2 Delivery O2 Flow Rate FiO2 03/12/17 17:48 106 132/66 03/12/17 15:56 98.2 106 18 132/66 96 03/12/17 13:45 103 03/12/17 13:16 114 20 100 Nasal Cannula 2.0 28 03/12/17 13:06 103 20 94 Nasal Cannula 2.0 28 03/12/17 12:40 104 136/67 03/12/17 12:00 118 03/12/17 12:00 2.0 03/12/17 11:43 98.2 104 18 136/67 98 03/12/17 09:00 2.0 03/12/17 08:57 102 03/12/17 08:34 102 20 96 Nasal Cannula 2.0 28 03/12/17 08:09 97.7 105 18 144/81 97 Nasal Cannula 2.0 03/12/17 08:00 140 03/12/17 07:50 Nasal Cannula 2.0 03/12/17 07:49 Nasal Cannula 2.0 28 03/12/17 07:48 102 20 96 Nasal Cannula 2.0 28 03/12/17 07:47 96 Nasal Cannula 2.0 28 03/12/17 06:22 98 136/89 03/12/17 04:00 2.0 03/12/17 04:00 97.5 96 18 136/89 Nasal Cannula 2.0 03/12/17 03:53 93 03/12/17 01:33 96 18 100 Nasal Cannula 2.0 28 03/12/17 01:28 95 18 98 Nasal Cannula 2.0 03/12/17 00:49 2.0 03/12/17 00:20 99 144/91 03/12/17 00:15 95 16 98 Nasal Cannula 2.0 28 03/12/17 00:07 96 16 98 Nasal Cannula 2.0 28 03/12/17 00:00 97.3 95 16 132/99 100 Nasal Cannula 2.0 28 03/11/17 23:55 100 03/11/17 20:04 99 18 100 Nasal Cannula 2.0 28 03/11/17 20:00 Nasal Cannula 2.0 28 03/11/17 20:00 99 Nasal Cannula 2.0 28 03/11/17 20:00 97.3 106 18 146/86 96 Nasal Cannula 2.0 28 03/11/17 20:00 2.0 03/11/17 19:58 98 18 98 Nasal Cannula 2.0 28 03/11/17 19:30 95 03/11/17 18:47 144 161/91 General Appearance: no apparent distress, alert Neck: supple Cardiovascular: tachycardia, irregularly irregular Respiratory/Chest: crackles/rales - left base Abdomen: normal bowel sounds, non tender, soft Extremities: no swelling Intake and Output 03/11/17 03/12/17 19:00 07:00 Intake Total 860.0 ml Balance 860.0 ml Intake Oral 750 ml IV Total 110.0 ml # Voids 2 # Bowel Movements 1 Laboratory Tests Test 03/12/17 05:50 Prothrombin Time 22.8 SEC (9.30-11.50) H Prothromb Time International Ratio 2.2 (0.9-1.1) H YOON ROBLEDO Mar 12, 2017 18:15
[2017-03-12 20:00] VITALS: BP 134/87
[2017-03-13] VITALS: BP 135/65
[2017-03-13] MEDS ORDERED: Metoprolol Tartrate 12.5mg TAB ORAL ONE (08:00)
--- NOTE | 2017-03-16 12:49 | Discharge Summary ---
Discharge Summary Hospital Course Date of Admission Mar 06, 2017 at 09:45 Date of Discharge Mar 13, 2017 at 01:35 Admitting Diagnosis COPD exacerbation HPI Aida St is a 76 year old female who was admitted on Mar 06, 2017 at 09: 45 for Chronic Obstructive Pulmonary Disease Exacerbation Hospital Course dc summary #[id number] Discharge Condition Upon Discharge: stable Discharge Disposition Patient was transferred to [facility]; for catheter ablation and possible pacemaker placement Discharge Diagnoses: Discharge Instructions Discharge Instructions Special Instructions I have been assigned to complete a D/C Summary on this account. I was not involved in the patient management Kay Yen NP (Vanchtein) Mar 16, 2017 12:49
--- NOTE | 2017-03-17 11:15 | Discharge Summary 2 SIG ---
DATE OF ADMISSION: 03/06/2017 DATE OF DISCHARGE: 03/13/2017 The patient was admitted under Dr. Ewing. REASON FOR ADMISSION: The patient is a 76-year-old female with history of diabetes, hypertension, and COPD, presented to emergency room with increased difficulty in breathing. The patient had a prior recent intubation at [facility], and currently is a resident of detention facility. She was markedly hypertensive. She was placed on 100% nonrebreathing mask. Nitroglycerin was given. Due to the ABG with evidence of acute respiratory failure with hypercapnia, the patient was started on the BiPAP. She was tachycardic. EKG shows atrial fibrillation with a rapid ventricular response. The patient was admitted for further management. ADMITTING DIAGNOSES: 1. Acute respiratory failure, requiring BiPAP. 2. Atrial fibrillation with a rapid ventricular response. 3. Chronic obstructive pulmonary disease. 4. Cardiomyopathy. 5. Hypertensive urgency. Of note, blood sugar was 375. Troponin was negative. Chest x-ray revealed mild interstitial edema. EKG shows atrial fibrillation with a rapid ventricular response. HOSPITAL COURSE: The patient was admitted initially to ICU. Cardiology consult was requested. The patient was on Cardizem drip and started on digoxin. Echocardiogram revealed severe cardiomyopathy with ejection fraction of 30% to 35% and right ventricular systolic pressure of 42 consistent with mild pulmonary hypertension as well as evidence of moderate mitral regurgitation. Due to the history of recent DVT, venous duplex of bilateral lower extremity was done and was negative. Followup chest x-ray shows improvement. [employer] closely followed. The patient was able to be weaned. Heart rate was controlled. The patient switched to maximum dose of oral Cardizem along with digoxin. The patient was started on anticoagulation with Coumadin. The patient was initially on the BiPAP and then was able to be weaned to oxygen via nasal cannula. ABG stable with evidence of hypercapnia. No acidosis. Pulmonary toilet provided per Cardio recommendation due to the prior persistent tachycardia. Albuterol was removed from the pulmonary toilet. The patient was only on Atrovent. The patient was diuresed. ProBNP from initial 1082 increased to over 5000. The patient was started on diuresis. Intake and output, renal parameters, and electrolytes closely monitored. Blood sugar was managed with sliding scale of insulin. The patient was on the IV steroids, which were gradually tapered. The patient was on empiric antibiotics. Antitussive provided as needed. Statin was continued. Blood pressure was controlled with current calcium channel matias and diuretics and the patient started on low dose of MARIE as per Cardio recommendation. Noticed low TSH, but normal T3 and T4. Lipid panel revealed stable cholesterol and LDL. Elevated triglycerides of 183. The patient was recommended to have low-fat cardiac diet. Serial troponins were negative. Heart rate is better, but still remained tachycardic up to 110. [employer] recommended to consider AV node ablation with PPI/ICD and avoid medication, which can make congestive heart failure worse and control the heart rate. The patient had 2 prior evidence of cardioversion without any success. [employer] doctor consult was requested. The patient was given a small dose of metoprolol to better control heart rate. The placement was found on 03/13/2017 in [facility] and the patient was subsequently transferred to [facility] for catheter ablation and possible pacemaker placement. Family agreed with the transfer. DISCHARGE DIAGNOSES: 1. Acute respiratory failure, requiring BiPAP, resolved. 2. Acute chronic obstructive pulmonary disease exacerbation. 3. Atrial fibrillation with rapid ventricular response. 4. Acute systolic congestive heart failure. 5. Cardiomyopathy. 6. Hypertensive urgency, resolved. 7. Diabetes mellitus. 8. Obesity. 9. Recent deep vein thrombosis. DISCHARGE MEDICATIONS: List of medication was sent with the patient to admitting facility. DISCHARGE INSTRUCTIONS: The patient was discharged to [facility] for further management for catheter ablation with possible pacemaker placement. Follow up with medical doctor and acute care physical therapist in the admitting facility. Erma Ewing M.D. I have been assigned to dictate discharge summary on this account and I was not involved in the patient's management. Kay Yen (vanchtein) N.PPrecious DR: SOY JOB#: [id number] CC:
== END 2017-03-13 01:35 | disposition short-term general hospital (02) | DRG 189 ==
LOC: EDBD 08:51 → EDSEX 08:51 → EMR 09:43 → 2W 09:45 → EDBEDREQ 10:57 → 2W 11:40 → ICU 18:38 → 2E 03-10 17:30
DX: J96.00 Acute respiratory failure, unspecified whether with hypoxia or hypercapnia (principal); J18.9 Pneumonia, unspecified organism; I50.21 Acute systolic (congestive) heart failure; I42.9 Cardiomyopathy, unspecified; I11.0 Hypertensive heart disease with heart failure; I48.2 Chronic atrial fibrillation; E11.9 Type 2 diabetes mellitus without complications; J44.1 Chronic obstructive pulmonary disease with (acute) exacerbation; I16.1 Hypertensive emergency; E66.9 Obesity, unspecified; E87.6 Hypokalemia; R00.0 Tachycardia, unspecified; Z68.28 Body mass index [BMI] 28.0-28.9, adult
CPT/HCPCS: 36415; 36600; 71010; 80053; 80061; 80162; 82550; 82553; 82803; 82962; 83690; 83735; 83880; 84100; 84439; 84443; 84480; 84481; 84484; 85007; 85025; 85610; 85730; 86140; 87040; 87081; 93005; 93306; 93970; 94640; 94660; 94664; 94760; J1815; J7620; J8499